=== PATIENT | male | born 1935 | race Caucasian/White ===

== ENCOUNTER 2017-10-10 16:20 | Inpatient (IN) | payer MEDICARE ==
[~2017-10-10] VITALS: Ht 200.7 cm; Wt 104.9 kg
[~2017-10-10 16:20] MED LIST: ASPIRIN EC81 MG PO; ATIVAN0.5 MG PO; AUGMENTIN 875-1 EACH PO; BACTROBAN15 GM TOP; BENADRYL25 M1 PO; BP MED PO; CENTRUM SILVER1 EAC3 PO; CHLORHEXIDINE118 M1 TOP; CLONAZEPAM1 MG PO; COREG12.5 MG PO; FLAGYL250 MG PO; HYDROCODON-ACE1 EA11 PO; LACTULOSE20 GM/30 M PO; LASIX40 MG PO; LEVOTHYROXINE PO; LEVOTHYROXINE50 MCG PO; LIPITOR20 MG PO; LORAZEPAM0.5 MG PO; MIRALAX17 GM PO; NEURONTIN300 MG PO; NORCO 10MG-325MG1 EA PO; PANTOPRAZOLE SO40 MG PO; PLAVIX75 MG PO; PROMETHAZINE HC25 M1 PO; RAMIPRIL10 MG PO; RAMIPRIL5 MG PO; SALINE NASAL SP45 ML; SENNA-S TABLET1 EA PO; SYNTHROID150 MCG PO; ULTRAM50 MG PO; ZOFRAN4 MG PO
--- OUTSIDE RECORDS SUMMARY | 2017-10-10 16:25 | XMS REPORT ---
Author Author [facility] Address Unknown Phone Unavailable Care Team Providers Care Readiness Paraprofessional Name Role Phone EVELIOVERNKATIUSKASTEVEN MarteANA Unavailable Unavailable CLEMENT OCONNOR Unavailable Unavailable JIM GUPTA Unavailable Unavailable Problems This patient has no known problems. Allergies, Adverse Reactions, Alerts This patient has no known allergies or adverse reactions. Medications This patient has no known medications. Results Test Description Test Time Test Comments Text Results Atomic Results Result Comments TISSUE EXAM 2017-07-13 15:05:00 Surgical Pathology Report Case: [id number] Authorizing Provider: Errol Gonzalez MD Collected: 07/08/2017 1143 Ordering Location: [address] Received: 2016 0857 Service Pathologist: Jimbo Cabrera MD Specimens: A) - Soft Tissue, Other, right lateral wall B) - Soft Tissue, Other, posterior wall A. URINARY BLADDER, RIGHT LATERAL WALL, TRANSURETHRAL RESECTION: - PAPILLARY UROTHELIAL CARCINOMA, HIGH GRADE (WHO GRADE 3), INVASIVE INTO MUSCULARIS PROPRIA - NEGATIVE FOR LYMPH/VASCULAR INVASIONB. URINARY BLADDER, POTERIOR WALL, TRANSURETHRAL RESECTION: - FREE- FLOATING FRAGMENTS OF UROTHELIAL CARCINOMA, HIGH GRADE, IN BLOOD AND FIBRIN Signing Pathologist Direct Phone Line: [phone] signed by Jimbo Cabrera MD on 07/13/2017 at 3:05 [id number] x 2.Bladder tumorA. Right lateral wall. B. Posterior wallSpecimen A: Received in formalin labeled "soft tissue, other", description "right lateral wall" is a 2.5 x 2.2 x 0.3 cm aggregate of pink-witt to espinoza-white, rubbery, cauterized, soft tissue. The specimen is entirely submitted in cassettes A1-A2.Specimen B: Received in formalin labeled "soft tissue, other", description "posterior wall" are two fragments measuring 0.5 cm and 0.8 cm in greatest dimension. The specimen is entirely submitted in B1. DB/ew Performed BASIC METABOLIC PANEL 2017-07-10 06:55:00 SODIUM (BEAKER) (test gahc=486) 136 meq/L 136-145 POTASSIUM (BEAKER) (test kzwl=136) 4.1 meq/L 3.5-5.1 CHLORIDE (BEAKER) (test yxjr=158) 107 meq/L 98-107 CO2 (BEAKER) (test ttnj=981) 21 meq/L 22-29 BLOOD UREA NITROGEN (BEAKER) (test rygb=536) 26 mg/dL 7-21 CREATININE (BEAKER) (test eyam=225) 1.06 mg/dL 0.57-1.25 GLUCOSE RANDOM (BEAKER) (test ithi=207) 102 mg/dL 70-105 CALCIUM (BEAKER) (test ntfh=064) 8.5 mg/dL 8.4-10.2 EGFR (BEAKER) (test wjho=0815) 67 mL/min/1.73 sq m ESTIMATED GFR IS NOT ACCURATE CREATININE CLEARANCE IN PREDICTING GLOMERULAR FILTRATION RATE. ESTIMATED GFR IS NOT APPLICABLE FOR DIALYSIS PATIENTS. CBC (HEMOGRAM ONLY)2017-07-10 06:14:00* Test Item Value Reference Range Comments WHITE BLOOD CELL COUNT (BEAKER) (test bmjp=553) 12.3 K/ L 3.5-10.5 RED BLOOD CELL COUNT (BEAKER) (test aqne=008) 3.88 M/ L 4.63-6.08 HEMOGLOBIN (BEAKER) (test qjdi=586) 11.8 GM/DL 13.7-17.5 HEMATOCRIT (BEAKER) (test ydvj=358) 38.1 % 40.1-51.0 MEAN CORPUSCULAR VOLUME (BEAKER) (test okkj=168) 98.2 fL 79.0-92.2 MEAN CORPUSCULAR HEMOGLOBIN (BEAKER) (test xznm=834) 30.4 pg 25.7-32.2 MEAN CORPUSCULAR HEMOGLOBIN CONC (BEAKER) (test mzob=151) 31.0 GM/DL 32.3- 36.5 RED CELL DISTRIBUTION WIDTH (BEAKER) (test eoyh=950) 14.8 % 11.6-14.4 PLATELET COUNT (BEAKER) (test hxry=856) 273 K/CU MM 150-450 MEAN PLATELET VOLUME (BEAKER) (test qzhs=389) 10.5 fL 9.4-12.4 NUCLEATED RED BLOOD CELLS (BEAKER) (test soxs=934) 0 /100 WBC 0-0 BASIC METABOLIC [id number] 06:04:00* Test Item Value Reference Range Comments SODIUM (BEAKER) (test eexk=546) 137 meq/L 136-145 POTASSIUM (BEAKER) (test kzby=346) 4.8 meq/L 3.5-5.1 CHLORIDE (BEAKER) (test toue=147) 102 meq/L 98-107 CO2 (BEAKER) (test bnwu=209) 24 meq/L 22-29 BLOOD UREA NITROGEN (BEAKER) (test scyr=224) 25 mg/dL 7-21 CREATININE (BEAKER) (test unis=769) 1.26 mg/dL 0.57-1.25 GLUCOSE RANDOM (BEAKER) (test eclq=540) 127 mg/dL 70-105 CALCIUM (BEAKER) (test nrma=191) 9.2 mg/dL 8.4-10.2 EGFR (BEAKER) (test wzay=8013) 55 mL/min/1.73 sq m ESTIMATED GFR IS NOT ACCURATE CREATININE CLEARANCE IN PREDICTING GLOMERULAR FILTRATION RATE. ESTIMATED GFR IS NOT APPLICABLE FOR DIALYSIS PATIENTS. CBC (HEMOGRAM ONLY)2017-07-09 05:21:00* Test Item Value Reference Range Comments WHITE BLOOD CELL COUNT (BEAKER) (test lioo=201) 19.7 K/ L 3.5-10.5 RED BLOOD CELL COUNT (BEAKER) (test mhik=692) 4.38 M/ L 4.63-6.08 HEMOGLOBIN (BEAKER) (test abqn=638) 13.5 GM/DL 13.7-17.5 HEMATOCRIT (BEAKER) (test ivfl=075) 42.9 % 40.1-51.0 MEAN CORPUSCULAR VOLUME (BEAKER) (test obzd=337) 97.9 fL 79.0-92.2 MEAN CORPUSCULAR HEMOGLOBIN (BEAKER) (test adcf=899) 30.8 pg 25.7-32.2 MEAN CORPUSCULAR HEMOGLOBIN CONC (BEAKER) (test psko=427) 31.5 GM/DL 32.3- 36.5 RED CELL DISTRIBUTION WIDTH (BEAKER) (test hhuo=527) 14.6 % 11.6-14.4 PLATELET COUNT (BEAKER) (test hcrr=600) 329 K/CU MM 150-450 MEAN PLATELET VOLUME (BEAKER) (test swjr=904) 10.8 fL 9.4-12.4 NUCLEATED RED BLOOD CELLS (BEAKER) (test tywa=848) 0 /100 WBC 0-0 BASIC METABOLIC [id number] 07:17:00* Test Item Value Reference Range Comments SODIUM (BEAKER) (test lwyq=143) 138 meq/L 136-145 POTASSIUM (BEAKER) (test unhy=791) 3.9 meq/L 3.5-5.1 CHLORIDE (BEAKER) (test zedl=614) 102 meq/L 98-107 CO2 (BEAKER) (test zbll=555) 25 meq/L 22-29 BLOOD UREA NITROGEN (BEAKER) (test okmj=088) 21 mg/dL 7-21 CREATININE (BEAKER) (test qior=092) 1.15 mg/dL 0.57-1.25 GLUCOSE RANDOM (BEAKER) (test vopc=310) 110 mg/dL 70-105 CALCIUM (BEAKER) (test dvkz=353) 8.9 mg/dL 8.4-10.2 EGFR (BEAKER) (test gtim=5988) 61 mL/min/1.73 sq m ESTIMATED GFR IS NOT ACCURATE CREATININE CLEARANCE IN PREDICTING GLOMERULAR FILTRATION RATE. ESTIMATED GFR IS NOT APPLICABLE FOR DIALYSIS PATIENTS. CBC W/PLT COUNT & AUTO [id number] 06:15:00* Test Item Value Reference Range Comments WHITE BLOOD CELL COUNT (BEAKER) (test ydha=427) 12.8 K/ L 3.5-10.5 RED BLOOD CELL COUNT (BEAKER) (test ecyw=167) 4.23 M/ L 4.63-6.08 HEMOGLOBIN (BEAKER) (test imfl=988) 13.0 GM/DL 13.7-17.5 HEMATOCRIT (BEAKER) (test tvza=295) 41.8 % 40.1-51.0 MEAN CORPUSCULAR VOLUME (BEAKER) (test lbij=461) 98.8 fL 79.0-92.2 MEAN CORPUSCULAR HEMOGLOBIN (BEAKER) (test hchd=991) 30.7 pg 25.7-32.2 MEAN CORPUSCULAR HEMOGLOBIN CONC (BEAKER) (test ycfu=242) 31.1 GM/DL 32.3- 36.5 RED CELL DISTRIBUTION WIDTH (BEAKER) (test suxw=228) 14.7 % 11.6-14.4 PLATELET COUNT (BEAKER) (test ozsc=645) 273 K/CU MM 150-450 MEAN PLATELET VOLUME (BEAKER) (test olnk=532) 10.5 fL 9.4-12.4 NUCLEATED RED BLOOD CELLS (BEAKER) (test hfal=851) 0 /100 WBC 0-0 NEUTROPHILS RELATIVE PERCENT (BEAKER) (test yade=108) 65 % LYMPHOCYTES RELATIVE PERCENT (BEAKER) (test fiyk=415) 15 % MONOCYTES RELATIVE PERCENT (BEAKER) (test zkxh=328) 15 % EOSINOPHILS RELATIVE PERCENT (BEAKER) (test dqmk=731) 5 % BASOPHILS RELATIVE PERCENT (BEAKER) (test slbj=315) 0 % NEUTROPHILS ABSOLUTE COUNT (BEAKER) (test gxfc=357) 8.30 K/ L 1.78-5.38 LYMPHOCYTES ABSOLUTE COUNT (BEAKER) (test cpum=851) 1.92 K/ L 1.32-3.57 MONOCYTES ABSOLUTE COUNT (BEAKER) (test xlsr=275) 1.90 K/ L 0.30-0.82 EOSINOPHILS ABSOLUTE COUNT (BEAKER) (test xoyf=894) 0.58 K/ L 0.04-0.54 BASOPHILS ABSOLUTE COUNT (BEAKER) (test dxqb=242) 0.05 K/ L 0.01-0.08 IMMATURE GRANULOCYTES-RELATIVE PERCENT (BEAKER) (test tfai=1492) 0 % 0-1 CT ABDOMEN/PELVIS [place] [address] Patient Name: RENE WILLS MR #: [id number] : 1935 Age/Sex: 81/M Req #: [id number] Adm Physician: CLEMENT OCONNOR MD Ordered by: LOUISE GALEANO MD Report #: [id number] Location: MED/SURG2 Room/Bed: [facility] _ Procedure: [id number] CT/CT ABDOMEN/PELVIS WO Exam Date: 07/02/17 Exam Time: 0600 REPORT STATUS: Signed EXAM: CT Abdomen and Pelvis WITHOUT contrast INDICATION: Abdominal pain COMPARISON: CT abdomen and pelvis 05/19/2017 TECHNIQUE: Abdomen and pelvis were scanned utilizing a multidetector helical scanner from the lung base to the pubic symphysis. Coronal and sagittal reformations were obtained. The lack of intravenous contrast limits the evaluation of the solid organs, vasculature, and possible lymphadenopathy. Protocol: General survey without contrast IV CONTRAST: No intravenous contrast was administered as per physician request. ORAL CONTRAST: None. COMPLICATIONS: None. RADIATION DOSE: Total Exam DLP: 722.7 mGy*cm. CTDIvol has been reviewed. It is below the limits set by the Radiation Protocol Committee (RPC). FINDINGS: LINES: None. Lower thorax: No parenchymal abnormality. No pneumothorax. No pleural effusion. Liver: No focal mass. No hepatomegaly. Normal parenchyma. Gallbladder: No gallstones. No gallbladder distention. Biliary tree: No intrahepatic duct dilation. No extrahepatic duct dilation. Spleen: No splenomegaly. No focal mass. Pancreas: No focal mass. Normal pancreatic duct. No peripancreatic inflammatory changes. Partial fatty replacement of the pancreas. Kidneys: 3.4 cm irregularity is present in the interpolar region of the right kidney, series 3 image 63, with an exophytic component and extension into the renal pelvis. 1.9 cm exophytic hypodensity in the inferior pole of the left kidney, series 3 image 59. 4.4 mm calculus is present in the interpolar region of the right kidney, series 3 image 72. No obstructing calculi. No hydronephrosis. No perinephric soft tissue inflammatory changes. Adrenal glands: No adrenal nodules.. Bladder: 2.2 cm asymmetric hyperdensity is present in the right lateral aspect of the urinary bladder, series 3 image 164. Minimal inflammatory changes are present around the urinary bladder. Pelvic organs : Normal. GI: No bowel wall thickening. No air-fluid levels. The stomach and small bowel are normal. Multiple diverticuli are present in the descending and sigmoid colon, without adjacent soft tissue inflammatory changes. Normal appendix. A moderate amount of retained feces limits intraluminal evaluation of the colon. Peritoneum/retroperitoneum: No pneumoperitoneum. No ascites. No drainable fluid collection. Lymph nodes : No lymphadenopathy. . Vessels: No focal abnormality. Atherosclerotic calcifications. Limited evaluation. Bones: No focal abnormality. Postoperative changes of the proximal right femur. Soft tissues: No focal abnormality. IMPRESSION: Asymmetric thickening of the urinary bladder may represent a malignancy. A cystoscopy may provide additional information for further characterization. Nonobstructing right nephrolithiasis. Indeterminate bilateral renal hypodensities, likely represent cysts. A renal ultrasound may provide additional information for further characterization. Signed by: Dr. Jonas Gaitan M.D. on 04/2017 9:19 AM Dictated By: JONAS GAITAN MD 8 Transcribed By: ABHINAV on 07/02/17918 COPY TO: LOUISE GALEANO MD CT ABDOMEN/PELVIS W[place] [address] Patient Name: RENE WILLS MR #: [id number] : 1935 Age/Sex: 81/M Req #: [id number] Adm Physician: CLEMENT OCONNOR MD Ordered by: JONH CHAVEZ MD Report #: [id number] Location: MED/SURG2 Room/ Bed: [facility] Procedure: [id number] CT/CT ABDOMEN/PELVIS WOW Exam Date: 07/02/17 Exam Time: 1215 REPORT STATUS: Signed EXAM: CT Abdomen and Pelvis WITH contrast INDICATION: Bladder lesion. COMPARISON: CT abdomen and pelvis 05/19/2017 and 07/02/2017. TECHNIQUE: Abdomen and pelvis were scanned utilizing a multidetector helical scanner from the lung base to the pubic symphysis before and after administration of contrast. Images were obtained in the precontrast, arterial, venous, and delayed phases. Coronal and sagittal reformations were obtained. Protocol: General survey IV CONTRAST: 100 mL of Isovue 370 ORAL CONTRAST: None COMPLICATIONS: None RADIATION DOSE: Total Exam DLP: 2745 mGy*cm. CTDIvol has been reviewed. It is below the limits set by the Radiation Protocol Committee (RPC). FINDINGS: LINES: None. Lower thorax: No parenchymal abnormality. No pneumothorax. No pleural effusion. Partially visualized cardiac lead. Liver: No focal mass. No hepatomegaly. Normal parenchyma. The hepatic and portal veins are patent. Gallbladder: No gallstones. No gallbladder distention. Biliary tree: No intrahepatic duct dilation. No extrahepatic duct dilation. Spleen: No splenomegaly. 4.4 cm hypodensity is present in the lateral aspect of the spleen, series 4 image 97. Pancreas: Normal parenchymal enhancement. No focal mass. Normal pancreatic duct. No peripancreatic inflammatory changes. Kidneys: No obstructing calculi. No hydronephrosis. No solid enhancing mass. Bilateral renal simple cysts. No perinephric soft tissue inflammatory changes. Adrenal glands: No adrenal nodules.. Bladder: 3.0 x 1.8 cm enhancing nodule in the right lateral aspect of the urinary bladder, series 4 image 163. Pelvic organs: Normal. GI: No bowel wall thickening. No air-fluid levels. The stomach and small bowel are normal. Diverticulosis of the descending and sigmoid colon. Normal appendix. A moderate amount of retained feces limits intraluminal evaluation of the colon. Peritoneum/retroperitoneum: No pneumoperitoneum. No ascites. No drainable fluid collection. Lymph nodes : No lymphadenopathy. Multiple subcentimeter noncalcified nonnecrotic lymph nodes are present in the mesentery with adjacent nonspecific soft tissue inflammatory changes. The changes are present in the distribution of the superior mesenteric artery. Vessels: The abdominal aorta and iliac vessels are patent. The celiac, superior mesenteric, and inferior mesenteric arteries are patent. Single bilateral renal arteries are patent. Atherosclerotic calcifications. Bones: No focal abnormality. Postoperative changes of the proximal right femur. Degenerative changes of the lumbar spine. Soft tissues: No focal abnormality. IMPRESSION: Hypodensity in the spleen is concerning for malignancy. Enhancing lesion in the lateral aspect of the urinary bladder is concerning for malignancy. Signed by: Dr. Jonas Gaitan M.D. on 07/02/2017 2:18 PM Dictated By : JONAS GAITAN MD 17 Transcribed By: ABHINAV on 07/02/171417 COPY TO: JONH CHAVEZ MD CT ABDOMEN/PELVIS [place] [address] Patient Name: RENE WILLS MR #: [id number] : 1935 Age/Sex: 81/M Req #: [id number] Adm Physician: Ordered by: JIM GUPTA MD Report #: [id number] Location: ER Room/Bed: Procedure: [id number] CT/CT ABDOMEN/PELVIS WO Exam Date: 05/19/17 Exam Time: 2123 REPORT STATUS: Signed EXAM: CT ABDOMEN AND PELVIS without IV CONTRAST DATE: 05/19/2017 9:14 PM Time stamp on Exam: 2126 hours INDICATION: Hematuria, right flank pain COMPARISON: None TECHNIQUE: The abdomen and pelvis were scanned using a multidetector helical scanner. Coronal and sagittal reformations were obtained. Renal stone protocol performed. IV Contrast: None Oral Contrast: None CTDIvol has been reviewed. It is below the limits set by the Radiation Protocol Committee (RPC) . FINDINGS: LOWER THORAX: No consolidations LIVER: No masses BILIARY: The gallbladder is unremarkable. No ductal dilation. SPLEEN: No masses PANCREAS: No masses ADRENALS: No nodules RIGHT KIDNEY: No nephroureterolithiasis or hydronephrosis. Nonobstructing 2 mm stone inferior pole of the right kidney. LEFT KIDNEY: No nephroureterolithiasis or hydronephrosis. Simple exophytic 2.5 cm cyst in the posterior medial aspect of the left kidney interpolar region. GI TRACT: No distention, wall thickening or evidence of obstruction. Sigmoid colon diverticulosis without CT findings of diverticulitis. Normal appendix. 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 PERITONEUM/RETROPERITONEUM: No free air or fluid. Nonspecific hyperattenuation of the mesenteric root mesentery without lymphadenopathy. LYMPH NODES: No lymphadenopathy REPRODUCTIVE ORGANS: The prostate is mildly enlarged at 4.7 cm in transverse diameter. BLADDER: The bladder is decompressed, however there is a partially visualized proximally 2 cm hyperdense focus. SOFT TISSUES: Unremarkable BONES: No suspicious bone lesions. Right hip surgical changes. IMPRESSION : 1. Irregular hyperdense 2 cm focus in the bladder could represent a blood clot or mass. Direct visualization is recommended. 2. Nonobstructing 2 mm stone in the inferior pole of the right kidney. Signed by: Dr. Román Lindo M.D. on 05/19/2017 9:52 PM Dictated By: ROMÁN LINDO MD 51 Transcribed By: ABHINAV on 05/19/172151 COPY TO: JIM GUPTA MD
--- NOTE | 2017-10-10 18:51 | Diagnostic Imaging Report ---
PROCEDURE: A single AP view of the chest. COMPARISON: Patients [facility], DX, CHEST 2 VIEWS - POWELL, 09/15/2016, 14:34. INDICATIONS: left sided chest pain, short of breath FINDINGS: Lines/tubes: Stable right upper chest Port-A-Cath and left chest 2-lead cardiac device Lungs: The lungs are well inflated and grossly clear. There is no evidence of pneumonia or pulmonary edema. Pleura: There is no pleural effusion or pneumothorax. Heart and mediastinum: Cardiac silhouette is unremarkable. Multiple metallic clips are again noted projecting over the cardiac shadow likely from prior CABG. Pulmonary vasculature is normal. Tortuous aorta. Bones: No acute bony abnormality. Midline sternotomy wires. IMPRESSION: 1. No acute cardiopulmonary abnormalities. Piter Joseph M.D. Dictated by: Pietr Joseph M.D. on 10/10/2017 at 18:52 Electronically approved by: Piter Joseph M.D. on 10/10/2017 at 18:52
[2017-10-10 19:07] LABS: BASOPHILS # (AUTO) 0.1 (0.0-0.1); BASOPHILS % 0.4 % (0.0-1.0); EOSINOPHILS # (AUTO) 0.5 (0.0-0.4); EOSINOPHILS % 3.2 % (0.0-6.0); HEMATOCRIT 40.6 % (38.2-49.6); HEMOGLOBIN 12.9 g/dL (14.0-18.0); LYMPHOCYTES # (AUTO) 2.2 (1.0-3.2); LYMPHOCYTES % 15.3 % (18.0-39.1); MEAN CORPUSCULAR HEMOGLOBIN 29.1 pg (28-32); MEAN CORPUSCULAR HGB CONC 31.8 g/dL (31-35); MEAN CORPUSCULAR VOLUME 91.6 fL (81-99); MONOCYTES # (AUTO) 1.6 (0.2-0.8); MONOCYTES % 11.1 % (4.4-11.3); NEUTROPHILS # (AUTO) 9.9 (2.1-6.9); NEUTROPHILS % 69.6 % (38.7-80.0); PLATELET COUNT 351 x10e3/uL (140-360); RED BLOOD COUNT 4.43 x10e6/uL (4.3-5.7); RED CELL DISTRIBUTION WIDTH 14.5 % (11.7-14.4)
[2017-10-10 19:15] LABS: INR 1.07; PROTHROMBIN TIME 13.1 seconds (11.9-14.5)
[2017-10-10 19:16] LABS: PARTIAL THROMBOPLASTIN TIME 38.8 seconds (23.8-35.5)
[2017-10-10 19:25] LABS: ALBUMIN 3.3 g/dL (3.5-5.0); ALBUMIN/GLOBULIN RATIO 0.8 (0.8-2.0); ANION GAP 13.1 mmol/L (8-16); CALCIUM 9.7 mg/dL (8.4-10.2); CREATININE, SERUM 1.44 mg/dL (0.72-1.25); POTASSIUM 4.1 mmol/L (3.5-5.1)
[2017-10-10 19:31] LABS: CREATINE KINASE MB 0.9 ng/mL (0-5.0)
[2017-10-10 19:48] LABS: EOSINOPHILS % (MANUAL) 2 % (0-7); LYMPHOCYTES % (MANUAL) 13 % (19-48); MONOCYTES % (MANUAL) 11 % (3.4-9.0); NEUTROPHILS % (MANUAL) 71 % (40-74); PLATELET ESTIMATE ADEQUATE; PLATELET MORPHOLOGY COMMENT NORMAL; RBC MORPHOLOGY COMMENT NORMAL
[2017-10-10 21:08] LABS: BILIRUBIN,URINE NEGATIVE (NEGATIVE); CLARITY,URINE HAZY (CLEAR); COLOR,URINE RED (YELLOW); KETONES,URINE NEGATIVE (NEGATIVE); LEUKOCYTE ESTERASE ,URINE NEGATIVE (NEGATIVE); NITRITE,URINE NEGATIVE (NEGATIVE); URINE UROBILINOGEN 0.2 mg/dL (0.2 - 1)
[2017-10-10 21:13] LABS: PROTEIN,URINE DIPSTICK 2+ (NEGATIVE)
[2017-10-10 21:26] LABS: BACTERIA,URINE MODERATE /HPF; RBC,URINE >50 /HPF (0-5)
[2017-10-10] MEDS ORDERED: ASPIRIN 81 MG CHEW TAB PO ONE (21:45)
[2017-10-10] MEDS ORDERED: SODIUM CHLORIDE FLUSH 10 ML SYR INJ PRN (21:45)
[2017-10-10] MEDS: NITROGLYCERIN 2% OINT 1 GM PKT TOP SCH (23:20)
[2017-10-10] MEDS: MORPHINE SULFATE 2 MG/ML SYR IV PRN (23:20)
[2017-10-10] MEDS: ONDANSETRON HCL INJ 2 MG/ML VIAL IV PRN (23:20)
[2017-10-11] VITALS (7 sets, daily range): BP systolic 106–151; BP diastolic 56–86
[2017-10-11 05:16] LABS: CREATINE KINASE MB 0.8 ng/mL (0-5.0)
[2017-10-11] MEDS: NITROGLYCERIN 2% OINT 1 GM PKT TOP SCH ×3 (05:53→17:33)
[2017-10-11 06:28] LABS: BASOPHILS # (AUTO) 0.1 (0.0-0.1); BASOPHILS % 0.5 % (0.0-1.0); EOSINOPHILS # (AUTO) 0.4 (0.0-0.4); HEMATOCRIT 34.6 % (38.2-49.6); LYMPHOCYTES # (AUTO) 2.3 (1.0-3.2); LYMPHOCYTES % 17.6 % (18.0-39.1); MEAN CORPUSCULAR HEMOGLOBIN 29.2 pg (28-32); MEAN CORPUSCULAR HGB CONC 31.8 g/dL (31-35); MEAN CORPUSCULAR VOLUME 91.8 fL (81-99); MONOCYTES # (AUTO) 1.7 (0.2-0.8); MONOCYTES % 12.7 % (4.4-11.3); NEUTROPHILS # (AUTO) 8.7 (2.1-6.9); NEUTROPHILS % 65.8 % (38.7-80.0); PLATELET COUNT 285 x10e3/uL (140-360); RED BLOOD COUNT 3.77 x10e6/uL (4.3-5.7); RED CELL DISTRIBUTION WIDTH 14.5 % (11.7-14.4)
[2017-10-11 06:55] LABS: CREATINE KINASE MB 0.9 ng/mL (0-5.0)
[2017-10-11 07:31] LABS: ALBUMIN 2.8 g/dL (3.5-5.0); ALBUMIN/GLOBULIN RATIO 0.8 (0.8-2.0); ANION GAP 12.1 mmol/L (8-16); CREATININE, SERUM 1.35 mg/dL (0.72-1.25); POTASSIUM 4.1 mmol/L (3.5-5.1)
[2017-10-11 07:48] LABS: EOSINOPHILS % (MANUAL) 3 % (0-7); LYMPHOCYTES % (MANUAL) 14 % (19-48); MONOCYTES % (MANUAL) 9 % (3.4-9.0); NEUTROPHILS % (MANUAL) 72 % (40-74)
[2017-10-11 07:49] LABS: ANISOCYTOSIS SLIGHT; HYPOCHROMASIA SLIGHT; PLATELET ESTIMATE ADEQUATE; PLATELET MORPHOLOGY COMMENT NORMAL; RBC MORPHOLOGY COMMENT NORMAL
[2017-10-11] MEDS ORDERED: ASPIRIN 81 MG ENTERIC COATED PO SCH (09:00)
[2017-10-11] MEDS: MORPHINE SULFATE 2 MG/ML SYR IV PRN (09:40)
--- NOTE | 2017-10-11 11:10 | Consultation ---
DATE OF CONSULTATION: October 11, 2017 CARDIOLOGY CONSULTATION REASON FOR CONSULTATION: Chest pain. HISTORY OF PRESENT ILLNESS: This is a 81-year-old man with a history of coronary artery disease, status post CABG and stents, chronic systolic heart failure, status post AICD, hypertension, hypothyroidism, and high-grade papillary urothelial carcinoma, who presents with complaints of chest pain and abdominal pain. The patient reports he had recent urologic procedure 2 weeks ago. He was receiving physical therapy at home when his heart rate was noted to be low. He then developed chest discomfort, which he described as sharp and lasting seconds at a time that was better when he moved his chest. There was no radiation, shortness of breath, nausea, or diaphoresis. His main complaint, however, is of pelvic discomfort. REVIEW OF SYSTEMS: Negative except as per HPI. PAST MEDICAL HISTORY: Coronary artery disease, status post CABG and stents, hypertension, chronic systolic heart failure, status post AICD, urothelial carcinoma. PAST SURGICAL HISTORY: CABG, right hip surgical repair, transurethral resection of bladder cancer. ALLERGIES: PLEASE SEE MAR. MEDICATIONS: Please see medication list. SOCIAL HISTORY: He has a remote history of tobacco use. No alcohol or illicit drugs. FAMILY HISTORY: Noncontributory. PHYSICAL EXAMINATION VITALS: Temperature 98.6 degrees, pulse 59, respiratory rate 16, blood pressure 116/57, oxygen saturation 94%. GENERAL: A well-developed, well-nourished man in no acute distress. HEENT: Normocephalic and atraumatic. Pupils equal. No scleral icterus. NECK: Supple. No thyromegaly or cervical lymphadenopathy. No carotid bruits. LUNGS: Clear to auscultation bilaterally. No wheezes or crackles. CARDIOVASCULAR: Normal rate. Regular rhythm. No murmur. Normal S1 and S2. ABDOMEN: Soft and nontender. EXTREMITIES: Trace edema on the right. No edema on the left. NEURO: Nonfocal exam. EKG is sinus arrhythmia, poor R-wave progression, low QRS voltage in precordial leads. Chest x-ray with no acute cardiopulmonary abnormalities. IMPRESSION 1. Chest pain. 2. Right lower extremity edema. 3. Coronary artery disease: Status post coronary artery bypass graft and stents with recent nuclear stress test at the office. 4. Chronic systolic heart failure: Status post automatic implanted cardioverter defibrillator. 5. Hypertension. 6. Hyperlipidemia. 7. Urothelial carcinoma. RECOMMENDATIONS: The patient ruled out for myocardial infarction with serial cardiac biomarkers. CTA of the chest to evaluate for PE given recent surgery. Will obtain bilateral lower extremity venous Dopplers as well. Continue current cardiac medications otherwise, including his home carvedilol and Lasix. Will have his AICD interrogated. Thank you for this consult. We will continue to follow. Job#: [id number] MARY
[2017-10-11] MEDS ORDERED: SODIUM CHLORIDE 0.9% 1000ML 1,000 ML IV SCH (11:30)
--- NOTE | 2017-10-11 13:29 | Diagnostic Imaging Report ---
PROCEDURE: CT scan of the chest WITH intravenous contrast, using pulmonary angiogram protocol. TECHNIQUE: The chest was scanned utilizing a multidetector helical scanner from the lung apex through the level of the adrenal glands after the IV administration of 78 cc of Isovue 370. Coronal and sagittal multiplanar reformations were obtained. Total DLP: 543.32 mGy-cm COMPARISON: CT abdomen pelvis 07/02/2017 INDICATIONS: Shortness of breath FINDINGS: Lines/tubes: Postoperative changes in median sternotomy wires and CABG. Lungs and Airways: Good opacification of the main pulmonary artery. No pulmonary emboli. 4.3 mm nodule in the right upper lobe (series 3 image 48). The lungs and airways are normal with no focal abnormality demonstrated. Atelectasis secondary to expiratory views. Pleura: The pleural spaces are clear. Heart and mediastinum: The thyroid gland is normal. No significant mediastinal, hilar or axillary lymphadenopathy is seen. The heart and pericardium are within normal limits. Severe coronary artery calcifications. Main pulmonary artery measures 2.7 cm. Ascending aorta measures 4.2 cm. Soft tissues: Normal. Abdomen: Limited contrast-enhanced views of the upper abdomen show no abnormality within the visualized liver, spleen, pancreas, or kidneys. The adrenal glands are normal. New indeterminate 2.8 cm mass in segment 5 the liver (series 2 image 125). Small sliding hiatal hernia with extension of intraperitoneal fat into the thorax. Bones: The visualized bony thorax is within normal limits. IMPRESSION: 1. No pulmonary emboli. 2. 4.3 mm right upper lobe nodule. Lungs are otherwise unremarkable. 3. New 2.8 cm mass in the right hepatic lobe. Recommend CT or MR abdomen without and with contrast liver mass protocol for further evaluation. Dictated by: Moises Gonzales M.D. on 10/11/2017 at 13:29 Electronically approved by: Moises Gonzales M.D. on 10/11/2017 at 13:29
[2017-10-11] MEDS ORDERED: SODIUM CHLORIDE 0.9% 50ML 100 ML ONE (15:08)
[2017-10-11] MEDS ORDERED: IOPAMIDOL 370 MG/ML 200 ML INFUS..BTL INJ ONE (15:08)
[2017-10-11] MEDS: DEXTROSE 5%/0.45% SOD CHL 1,000 ML IV SCH (17:53)
[2017-10-11] MEDS: MELATONIN 5 MG TABLET PO SCH (21:25)
[2017-10-12] VITALS (8 sets, daily range): BP systolic 128–154; BP diastolic 62–74
[2017-10-12] MEDS: NITROGLYCERIN 2% OINT 1 GM PKT TOP SCH ×4 (00:43→17:04)
[2017-10-12] MEDS: ONDANSETRON HCL INJ 2 MG/ML VIAL IV PRN ×2 (07:10→12:15)
[2017-10-12] MEDS ORDERED: SODIUM CHLORIDE 0.9% 1000ML 1,000 ML IV SCH (11:30)
[2017-10-12] MEDS: DEXTROSE 5%/0.45% SOD CHL 1,000 ML IV SCH (14:42)
[2017-10-12] MEDS ORDERED: POLYETHYLENE GLYCOL 3350 17 GM PACK PO PRN (15:00)
--- NOTE | 2017-10-12 15:16 | Progress Note ---
DATE: October 12, 2017 CARDIOLOGY PROGRESS NOTE SUBJECTIVE: The patient denies chest pain or shortness of breath. He was seen walking the halls with PT. OBJECTIVE VITAL SIGNS: Temperature 97.3 degrees, pulse 60, respiratory rate 17, blood pressure 164/74, oxygen saturation 94% on room air. GENERAL: Awake, alert, in no acute distress. Elderly man. LUNGS: Clear to auscultation bilaterally. No wheezes or crackles. CARDIOVASCULAR: Normal rate, regular rhythm. No murmur. Normal S1 and S2. ABDOMEN: Soft, nontender. EXTREMITIES: Trace edema. CARDIAC MEDICATIONS: None. LABS: None today. TELEMETRY: Normal sinus rhythm with PACs and PVCs. IMPRESSION 1. Chest pain. 2. Right lower extremity edema. 3. Coronary artery disease status post coronary artery bypass graft and stents with recent nuclear stress test at the office. 4. Chronic systolic heart failure status post automatic implantable cardioverter-defibrillator. 5. Hypertension. 6. Hyperlipidemia. 7. Urothelial carcinoma. RECOMMENDATIONS: Patient ruled out for myocardial infarction with serial cardiac biomarkers. CTA of the chest was without evidence of PE. Bilateral lower extremity venous Dopplers were without evidence of DVT. Continue current cardiac medications. The patient's AICD interrogation demonstrated normal function with episodes of supraventricular tachycardia, the longest of which lasted 10 seconds. No further cardiac evaluation is indicated at this time. Thank you for this consult. We will continue to follow. Job#: [id number] FREDRICK
[2017-10-12] MEDS ORDERED: SOD PHOSPHATE/SOD BIPHOSPHATE ENEMA 132 ML BTL PR STA (17:32)
--- NOTE | 2017-10-12 17:50 | Diagnostic Imaging Report ---
PROCEDURE:HIP RIGHT 2-3 VW (+/- PELVIS) COMPARISON:None. INDICATIONS:RIGHT HIP PAIN FINDINGS: Mildly decreased mineralization. 3. Orthopedic screws are noted traversing the right proximal femur. Orthopedic hardware is intact. Mild degenerative changes in the right hip joint. No lytic or blastic lesions. No acute displaced fracture or dislocation. Pelvic phleboliths. Nonobstructive bowel gas pattern. CONCLUSION: No acute abnormalities. Mild degenerative changes in the right hip joint. Intact hardware in the right proximal femur. Piter Joseph M.D. Dictated by: Piter Joseph M.D. on 10/12/2017 at 17:50 Electronically approved by: Piter Joseph M.D. on 10/12/2017 at 17:50
[2017-10-12] MEDS: BISACODYL 5 MG TAB EC PO PRN (17:56)
[2017-10-12] MEDS: MELATONIN 5 MG TABLET PO SCH (21:30)
[2017-10-12] MEDS: CEFTRIAXONE SOD 1 GM VIAL IV SCH (22:00)
[2017-10-13] VITALS (7 sets, daily range): BP systolic 138–169; BP diastolic 65–79
[2017-10-13] MEDS: NITROGLYCERIN 2% OINT 1 GM PKT TOP SCH ×4 (00:30→17:23)
[2017-10-13 07:25] LABS: BASOPHILS # (AUTO) 0.1 (0.0-0.1); BASOPHILS % 0.5 % (0.0-1.0); EOSINOPHILS # (AUTO) 0.4 (0.0-0.4); EOSINOPHILS % 3.3 % (0.0-6.0); HEMOGLOBIN 11.4 g/dL (14.0-18.0); LYMPHOCYTES # (AUTO) 2.2 (1.0-3.2); LYMPHOCYTES % 17.5 % (18.0-39.1); MEAN CORPUSCULAR HEMOGLOBIN 28.9 pg (28-32); MEAN CORPUSCULAR HGB CONC 30.8 g/dL (31-35); MEAN CORPUSCULAR VOLUME 93.9 fL (81-99); MONOCYTES # (AUTO) 1.6 (0.2-0.8); MONOCYTES % 12.5 % (4.4-11.3); NEUTROPHILS # (AUTO) 8.4 (2.1-6.9); NEUTROPHILS % 65.9 % (38.7-80.0); PLATELET COUNT 310 x10e3/uL (140-360); RED BLOOD COUNT 3.94 x10e6/uL (4.3-5.7); RED CELL DISTRIBUTION WIDTH 14.6 % (11.7-14.4)
[2017-10-13 07:48] LABS: CALCIUM 9.4 mg/dL (8.4-10.2); CREATININE, SERUM 1.18 mg/dL (0.72-1.25)
[2017-10-13] MEDS ORDERED: LABETALOL HCL 5 MG/ML 20ML VIAL IV PRN (09:45)
[2017-10-13] MEDS ORDERED: LABETALOL HCL 5 MG/ML 20ML VIAL IV ONE (10:05)
[2017-10-13] MEDS ORDERED: BELLADONNA/OPIUM 60 MG SUPP PR ONE (11:10)
[2017-10-13] MEDS ORDERED: IOPAMIDOL 610MG/1ML 300 MG/ML VIAL IV ONE (11:10)
[2017-10-13] MEDS ORDERED: FENTANYL CITRATE/PF 100MCG/2 ML INJ ONE ×2 (13:10→15:52)
[2017-10-13] MEDS ORDERED: SEVOFLURANE INHAL SOLN 250 ML PEN BTL ONE (13:42)
[2017-10-13] MEDS ORDERED: ONDANSETRON HCL INJ 2 MG/ML VIAL ONE (13:42)
[2017-10-13] MEDS ORDERED: LIDOCAINE HCL 2% LOCAL INJ 5 ML SDV VIAL INJ ONE (13:42)
[2017-10-13] MEDS ORDERED: DEXAMETHASONE SOD PHOS INJ 4 MG/ML VIAL ONE (13:42)
[2017-10-13] MEDS ORDERED: PROPOFOL IV EMULSION 10 MG/ML 20 ML VIAL ONE (13:42)
[2017-10-13] MEDS ORDERED: MIDAZOLAM HCL 2 MG/2 ML VIAL ONE ×2 (13:45→15:52)
[2017-10-13] MEDS ORDERED: MORPHINE SULFATE 2 MG/ML SYR ONE (13:55)
--- NOTE | 2017-10-13 13:59 | Progress Note ---
DATE: October 13, 2017 CARDIOLOGY PROGRESS NOTE SUBJECTIVE: The patient is seen after cystoscopy with retrograde pyelogram. He is combative after anesthesia. No history could be obtained. Family indicates this is common after he receives anesthesia. OBJECTIVE VITALS: Temperature 97.5 degrees, pulse 71, respiratory rate 20, blood pressure 166/71, and oxygen saturation 95% on room air. GENERAL: Awake and in no acute distress. LUNGS: Clear to auscultation bilaterally. No wheezes or crackles. CARDIOVASCULAR: Normal rate. Regular rhythm. No murmurs. Normal S1 and S2. ABDOMEN: Soft and nontender. EXTREMITIES: No edema. CARDIAC MEDICATIONS: None. LABS: WBC 12.68, hemoglobin 11.4, hematocrit 37, and platelets 310,000. Sodium 141, potassium 4, chloride 104, CO2 28, BUN 14, creatinine 1.18. Telemetry is normal sinus rhythm. IMPRESSION 1. Chest pain. 2. Coronary artery disease: Status post coronary artery bypass grafting and stents with recent nuclear stress test at the office. 3. Chronic systolic heart failure: Status post automatic implanted cardioverter defibrillator. 4. Hypertension. 5. Hyperlipidemia. 6. Urothelial carcinoma. 7. Hematuria. RECOMMENDATIONS: The patient ruled out for myocardial infarction by serial cardiac biomarkers. CT of the chest was without evidence of PE. Continue current cardiac medications. AICD interrogation demonstrated normal function. No further cardiac evaluation is indicated at this time. Further evaluation of urothelial carcinoma and hematuria per urology. Thank you for this consult. Will continue to follow. Job#: [id number] MARY
[2017-10-13] MEDS ORDERED: LORAZEPAM INJ 2 MG/ML VIAL IV NR (14:00)
[2017-10-13] MEDS: DEXTROSE 5%/0.45% SOD CHL 1,000 ML IV SCH (17:23)
[2017-10-13] MEDS: CEFTRIAXONE SOD 1 GM VIAL IV SCH (20:33)
[2017-10-13] MEDS: MELATONIN 5 MG TABLET PO SCH (20:33)
[2017-10-14] VITALS (8 sets, daily range): BP systolic 129–164; BP diastolic 69–77
[2017-10-14] MEDS: NITROGLYCERIN 2% OINT 1 GM PKT TOP SCH ×4 (01:06→17:34)
[2017-10-14] MEDS: TRAMADOL HCL 50 MG TAB PO PRN ×2 (01:09→16:10)
[2017-10-14] MEDS: BELLADONNA/OPIUM 60 MG SUPP PR PRN ×2 (03:30→19:50)
[2017-10-14] MEDS: DEXTROSE 5%/0.45% SOD CHL 1,000 ML IV SCH (05:30)
[2017-10-14 08:02] LABS: BASOPHILS # (AUTO) 0.1 (0.0-0.1); BASOPHILS % 0.4 % (0.0-1.0); EOSINOPHILS # (AUTO) 0.3 (0.0-0.4); HEMATOCRIT 34.3 % (38.2-49.6); HEMOGLOBIN 10.8 g/dL (14.0-18.0); LYMPHOCYTES # (AUTO) 1.7 (1.0-3.2); LYMPHOCYTES % 11.8 % (18.0-39.1); MEAN CORPUSCULAR HGB CONC 31.5 g/dL (31-35); MEAN CORPUSCULAR VOLUME 92.2 fL (81-99); MONOCYTES # (AUTO) 2.2 (0.2-0.8); MONOCYTES % 15.5 % (4.4-11.3); NEUTROPHILS # (AUTO) 9.9 (2.1-6.9); NEUTROPHILS % 69.9 % (38.7-80.0); PLATELET COUNT 284 x10e3/uL (140-360); RED BLOOD COUNT 3.72 x10e6/uL (4.3-5.7); RED CELL DISTRIBUTION WIDTH 14.6 % (11.7-14.4)
[2017-10-14 08:20] LABS: ANION GAP 9.7 mmol/L (8-16); BLOOD UREA NITROGEN 12 mg/dL (7-26); BUN/CREATININE RATIO 12 (6-25); CALCIUM 8.5 mg/dL (8.4-10.2); CARBON DIOXIDE 28 mmol/L (22-29); CHLORIDE 103 mmol/L (98-107); CREATININE, SERUM 1.02 mg/dL (0.72-1.25); EST GLOMERULAR FILTRATION RATE > 60 ML/MIN (60-); GLUCOSE 125 mg/dL (74-118); POTASSIUM 3.7 mmol/L (3.5-5.1); SODIUM 137 mmol/L (136-145)
[2017-10-14] MEDS: METOPROLOL SUCCINATE 25 MG TAB XL PO SCH (10:26)
[2017-10-14 10:31] LABS: EOSINOPHILS % (MANUAL) 2 % (0-7); LYMPHOCYTES % (MANUAL) 8 % (19-48); MONOCYTES % (MANUAL) 12 % (3.4-9.0); NEUTROPHILS % (MANUAL) 74 % (40-74)
[2017-10-14 10:32] LABS: PLATELET ESTIMATE ADEQUATE; PLATELET MORPHOLOGY COMMENT NORMAL; RBC MORPHOLOGY COMMENT NORMAL
--- NOTE | 2017-10-14 11:01 | Progress Note ---
DATE: CARDIOLOGY PROGRESS NOTE DATE OF : 1935 SUBJECTIVE: Patient reports some shortness of breath. Denies any chest pain or palpitations. Reports feeling fatigued. CARDIOVASCULAR MEDICATIONS: Labetalol 10 mg q. 6 hours p.r.n. for hypertension and nitroglycerin 1 gram topical q. 6 hours. OBJECTIVE VITAL SIGNS: Temperature 98.6, pulse rate 67, respiratory rate 20, blood pressure 154/73, and oxygen saturation 96% on 2 liters nasal cannula. GENERAL: Alert and oriented x2, resting comfortably in bed, does not appear to be in any acute distress. LUNGS: Diminished breath sounds throughout. No wheezing, rhonchi, or crackles. CARDIOVASCULAR: Regular rate and rhythm. Normal S1 and S2. ABDOMEN: Rounded, soft, and nontender. Meehan catheter with hematuria noted. EXTREMITIES: Lower extremities, trace edema bilaterally. LAB: WBC 14.08, hemoglobin 10.8, hematocrit 34.3, and platelets 284. Sodium 137, potassium 3.7, glucose 125, BUN 12, creatinine 1.02, and GFR greater than 60. TELEMETRY: Sinus rhythm. ASSESSMENT 1. Chest pain. 2. Coronary artery disease, status post coronary artery bypass grafting and stenting with recent normal stress test at the office. 3. Chronic systolic heart failure, status post implantable-cardioverter defibrillator. 4. Hypertension. 5. Hyperlipidemia. 6. Urothelial carcinoma. 7. Hematuria. RECOMMENDATIONS: Cardiac enzymes and markers have ruled out acute myocardial infarction. CT of the chest without evidence of PE. Continue the above cardiac medications. We will be adding beta esdras to the above list. ICD interrogated recently with normal function and no acute events noted. No further cardiac evaluation is needed at this time. Continue evaluation for urothelial carcinoma and hematuria per urologist. Thank you for letting us participate in this patient's care. Dictated By: Yarelis Strickland NP Job#: [id number] SY
[2017-10-14] MEDS: CEFTRIAXONE SOD 1 GM VIAL IV SCH (21:48)
[2017-10-14] MEDS: MELATONIN 5 MG TABLET PO SCH (21:48)
[2017-10-15] VITALS (8 sets, daily range): BP systolic 149–181; BP diastolic 74–92
[2017-10-15] MEDS: NITROGLYCERIN 2% OINT 1 GM PKT TOP SCH ×2 (01:08→05:28)
[2017-10-15 07:27] LABS: BASOPHILS # (AUTO) 0.1 (0.0-0.1); BASOPHILS % 0.3 % (0.0-1.0); EOSINOPHILS # (AUTO) 0.4 (0.0-0.4); EOSINOPHILS % 2.3 % (0.0-6.0); HEMATOCRIT 34.2 % (38.2-49.6); LYMPHOCYTES # (AUTO) 1.7 (1.0-3.2); LYMPHOCYTES % 11.3 % (18.0-39.1); MEAN CORPUSCULAR HEMOGLOBIN 29.3 pg (28-32); MEAN CORPUSCULAR HGB CONC 32.2 g/dL (31-35); MEAN CORPUSCULAR VOLUME 91.2 fL (81-99); MONOCYTES # (AUTO) 2.3 (0.2-0.8); MONOCYTES % 15.1 % (4.4-11.3); NEUTROPHILS # (AUTO) 10.8 (2.1-6.9); NEUTROPHILS % 70.5 % (38.7-80.0); PLATELET COUNT 301 x10e3/uL (140-360); RED BLOOD COUNT 3.75 x10e6/uL (4.3-5.7); RED CELL DISTRIBUTION WIDTH 14.6 % (11.7-14.4)
[2017-10-15 07:59] LABS: ALANINE AMINOTRANSFERASE 11 IU/L (0-55); ALBUMIN 2.6 g/dL (3.5-5.0); ALBUMIN/GLOBULIN RATIO 0.7 (0.8-2.0); ALKALINE PHOSPHATASE 98 IU/L (40-150); ANION GAP 12.1 mmol/L (8-16); BLOOD UREA NITROGEN 14 mg/dL (7-26); BUN/CREATININE RATIO 14 (6-25); CARBON DIOXIDE 28 mmol/L (22-29); CHLORIDE 104 mmol/L (98-107); CREATININE, SERUM 1.03 mg/dL (0.72-1.25); EST GLOMERULAR FILTRATION RATE > 60 ML/MIN (60-); GLUCOSE 117 mg/dL (74-118); POTASSIUM 4.1 mmol/L (3.5-5.1); SODIUM 140 mmol/L (136-145)
[2017-10-15] MEDS: METOPROLOL SUCCINATE 25 MG TAB XL PO SCH (08:23)
[2017-10-15] MEDS: CEFTRIAXONE SOD 1 GM VIAL IV SCH (08:23)
[2017-10-15 10:08] LABS: EOSINOPHILS % (MANUAL) 5 % (0-7); LYMPHOCYTES % (MANUAL) 13 % (19-48); MONOCYTES % (MANUAL) 14 % (3.4-9.0); NEUTROPHILS % (MANUAL) 68 % (40-74)
[2017-10-15 10:09] LABS: PLATELET ESTIMATE SLIGHTLY INCREASED; PLATELET MORPHOLOGY COMMENT NORMAL; RBC MORPHOLOGY COMMENT NORMAL
[2017-10-15] MEDS: CEFEPIME HCL 1 GM VIAL IV SCH ×2 (10:36→21:36)
--- NOTE | 2017-10-15 12:33 | Progress Note ---
DATE: CARDIOLOGY PROGRESS NOTE SUBJECTIVE: Patient states that he is tired. He denies any chest pain at the moment. He states that it comes and goes. He endorses some shortness of breath, especially when he is walking. CARDIOVASCULAR MEDICATIONS 1. Labetalol 10 mg q. 6 hours p.r.n. for elevated blood pressure. 2. Metoprolol 25 mg p.o. daily. OBJECTIVE VITAL SIGNS: Temperature 98.6, pulse 61, respiratory rate 22, blood pressure 159/82, and oxygen saturation 96% on 2 liters nasal cannula. GENERAL: Alert and oriented x2, resting comfortably in bed, does not appear to be in any acute distress. LUNGS: Diminished breath sounds throughout. No rhonchi, crackles, or wheezes noted. CARDIOVASCULAR: Regular rate and rhythm. Normal S1 and S2. ABDOMEN: Rounded, soft, and nontender. Meehan catheter with bright red urine noted. EXTREMITIES: Lower extremities, trace edema bilaterally. LAB: WBC 15.28, hemoglobin 11.0, hematocrit 34.2, and platelets 301. Sodium 140, potassium 4.1, BUN 14, creatinine 1.03, and GFR greater than 60. TELEMETRY: Sinus rhythm. ASSESSMENT 1. Chest pain. 2. Coronary artery disease, status post coronary artery bypass grafting and stenting with recent normal stress test in our office. 3. Chronic systolic heart failure with implantable-cardioverter defibrillator. 4. Hypertension. 5. Dyslipidemia. 6. Urothelial carcinoma. 7. Hematuria. RECOMMENDATIONS: Continue the above-listed cardiac medications. Cardiac enzymes have ruled out acute myocardial infarction. CT scan with no evidence of PE. Continue above care. Okay to discharge with followup closely in the office in the next 1 to 2 weeks. Continue evaluation for carcinoma and hematuria by urologist. We will continue to follow. Dictated By: Yarelis Strickland NP Job#: [id number] SY
[2017-10-15] MEDS: TRAMADOL HCL 50 MG TAB PO PRN (15:12)
[2017-10-15] MEDS: BELLADONNA/OPIUM 60 MG SUPP PR PRN (16:14)
[2017-10-15] MEDS: MELATONIN 5 MG TABLET PO SCH (21:36)
[2017-10-16] VITALS: BP 123/70
[2017-10-16 04:00] VITALS: BP 148/80
[2017-10-16 07:56] LABS: BASOPHILS # (AUTO) 0.1 (0.0-0.1); BASOPHILS % 0.5 % (0.0-1.0); EOSINOPHILS # (AUTO) 0.7 (0.0-0.4); EOSINOPHILS % 5.6 % (0.0-6.0); HEMATOCRIT 35.7 % (38.2-49.6); HEMOGLOBIN 11.5 g/dL (14.0-18.0); LYMPHOCYTES # (AUTO) 1.5 (1.0-3.2); LYMPHOCYTES % 11.5 % (18.0-39.1); MEAN CORPUSCULAR HGB CONC 32.2 g/dL (31-35); MEAN CORPUSCULAR VOLUME 89.9 fL (81-99); MONOCYTES # (AUTO) 1.9 (0.2-0.8); MONOCYTES % 14.5 % (4.4-11.3); NEUTROPHILS # (AUTO) 8.8 (2.1-6.9); NEUTROPHILS % 67.5 % (38.7-80.0); PLATELET COUNT 281 x10e3/uL (140-360); RED BLOOD COUNT 3.97 x10e6/uL (4.3-5.7); RED CELL DISTRIBUTION WIDTH 14.6 % (11.7-14.4)
[2017-10-16 08:21] LABS: ANION GAP 10.9 mmol/L (8-16); BLOOD UREA NITROGEN 16 mg/dL (7-26); BUN/CREATININE RATIO 17 (6-25); CALCIUM 8.9 mg/dL (8.4-10.2); CARBON DIOXIDE 26 mmol/L (22-29); CHLORIDE 104 mmol/L (98-107); CREATININE, SERUM 0.96 mg/dL (0.72-1.25); EST GLOMERULAR FILTRATION RATE > 60 ML/MIN (60-); GLUCOSE 99 mg/dL (74-118); POTASSIUM 3.9 mmol/L (3.5-5.1); SODIUM 137 mmol/L (136-145)
[2017-10-16] MEDS: METOPROLOL SUCCINATE 25 MG TAB XL PO SCH (08:26)
[2017-10-16] MEDS: CEFEPIME HCL 1 GM VIAL IV SCH (08:27)
[2017-10-16 08:30] VITALS: BP 171/84
[2017-10-16 08:45] LABS: ANISOCYTOSIS SLIGHT; EOSINOPHILS % (MANUAL) 4 % (0-7); LYMPHOCYTES % (MANUAL) 10 % (19-48); MONOCYTES % (MANUAL) 11 % (3.4-9.0); NEUTROPHILS % (MANUAL) 75 % (40-74); RBC MORPHOLOGY COMMENT NORMAL
[2017-10-16 08:46] LABS: PLATELET ESTIMATE ADEQUATE; PLATELET MORPHOLOGY COMMENT NORMAL
[2017-10-16 10:08] VITALS: BP 171/84
[2017-10-16] MEDS: BELLADONNA/OPIUM 60 MG SUPP PR PRN (13:13)
[2017-10-16] MEDS: TRAMADOL HCL 50 MG TAB PO PRN (13:40)
[2017-10-16] MEDS: BISACODYL 5 MG TAB EC PO PRN (13:40)
[2017-10-16 16:29] VITALS: BP 141/64
--- NOTE | 2017-11-23 07:20 | Operative Report ---
DATE OF PROCEDURE: October 13, 2017 PREOPERATIVE DIAGNOSES: 1. Recurrent bladder cancer on the right lateral wall. 2. Hydronephrosis. POSTOPERATIVE DIAGNOSES: 1. Recurrent bladder cancer on the right lateral wall. 2. Hydronephrosis. OPERATIONS PERFORMED: 1. Cystourethroscopy with bilateral ureteral catheterization and retrograde ureteropyelography (separate procedure performed to evaluate the hydronephrosis). 2. Interpretation of retrograde ureteropyelography. 3. Supervision of fluoroscopy, no radiologist present. 4. Cystourethroscopy with transurethral resection of large right-sided bladder wall tumor. ANESTHESIA: General. COMPLICATIONS: None. CLINICAL SUMMARY: Melecio Browne is a 81-year-old man with bladder cancer. He has undergone previous resection. He is brought to the operating room for additional resection. The patient requires an extra-long resectoscope, which was obtained from other institution. The family is aware of the risks of bleeding, infection, injury to adjacent structures, need for additional procedures, and elected to proceed. OPERATIVE PROCEDURE IN DETAIL: Informed consent was verified. Melecio Browne was properly identified, taken to the operating room and placed on the cystoscopy table in supine position. Anesthesia was uneventfully begun. The patient was then carefully and gently repositioned in dorsal lithotomy position with all pressure points well padded. His genitalia were prepared and draped in usual sterile fashion. The 22.5-Faroese cystoscope sheath with the visual obturator in place was atraumatically inserted in patient's urethra. It was guided down a normal distal urethra through some wide-caliber non-clinically significant stricturing at the bulbar region and through the prostate bed, which was significant for being relatively open and unobstructed. Panendoscopy of the urinary bladder revealed bladder tumor in the right lateral wall. This tumor appeared to be cancerous as well as potentially invasive. No additional lesions were identified. A ureteral catheter was used to cannulate each ureter, and retrograde ureteral pyelograms were performed. Interpretation of retrograde ureteropyelography: Contrast was instilled in retrograde fashion bilaterally. There was chronic hydroureteronephrosis. There was tortuosity of both ureters. It is unclear whether the patient's right intrarenal collecting system is completely free of any filling defect. Opacification was not well achieved due to this hydronephrosis and tortuosity. There may be a retrocaval ureter present on the right hand side. Nevertheless, unobstructed drainage was observed fluoroscopically. We could not well opacify the renal collecting system on the left hand side. The patient had previous recent retrograde pyelograms that opacified both intrarenal collecting systems well and demonstrated no filling defects and no suspicious lesions. We utilized the extra-long resectoscope sheath, which was inserted atraumatically. We then proceeded performing a transurethral resection of this very large greater than 5 cm bladder tumor from the right lateral wall. We progressively resected all visible tumor and fulgurated the base of the lesion with surrounding 1 cm of margin. Excellent hemostasis was achieved. The resectoscope was withdrawn. A Meehan catheter was placed. It was irrigated to and fro to ensure it worked properly. A belladonna and opium suppository was placed, and the patient was uneventfully reversed from anesthesia and taken to recovery room in stable condition. There were no complications to the procedure. Patient tolerated the procedure well. There was diverticulum near the bladder tumor and this diverticulum was not involved with cancer. Most of the tumor was resected from the right lateral wall, however, this tumor did extend a little bit to the anterior bladder wall and it was resected from there as well. The plans will be to have the patient go for recuperation and additional rehabilitation to the [facility] senior living facility, and we will of course follow the patient up on a long-term basis and plan on future cystoscopy. Job#: [id number] cc:NACHO OCONNOR MD
== END 2017-10-16 18:09 | DRG 669 ==
LOC: ER 16:25 → ERHOLD 22:42 → IMCU 23:45 → OBSVTOIN 10-12 08:33 → MED/SURG3 10-12 13:06
PROC: BT141ZZ Fluoroscopy of Kidneys, Ureters and Bladder using Low Osmolar Contrast (ICD-10-PCS; 2017-10-13)
PROC: 4B02XTZ Measurement of Cardiac Defibrillator, External Approach (ICD-10-PCS; 2017-10-13)
PROC: 0TBB8ZZ Excision of Bladder, Via Natural or Artificial Opening Endoscopic (ICD-10-PCS; principal; 2017-10-13 10:30)
PROC: 0T788ZZ Dilation of Bilateral Ureters, Via Natural or Artificial Opening Endoscopic (ICD-10-PCS; 2017-10-13 10:30)
DX: C67.6 Malignant neoplasm of ureteric orifice (principal); I47.1 Supraventricular tachycardia; I50.22 Chronic systolic (congestive) heart failure; N39.0 Urinary tract infection, site not specified; I13.0 Hypertensive heart and chronic kidney disease with heart failure and stage 1 through stage 4 chronic kidney disease, or unspecified chronic kidney disease; N17.9 Acute kidney failure, unspecified; I25.10 Atherosclerotic heart disease of native coronary artery without angina pectoris; I11.0 Hypertensive heart disease with heart failure; R07.9 Chest pain, unspecified; Z95.810 Presence of automatic (implantable) cardiac defibrillator; Z95.5 Presence of coronary angioplasty implant and graft; E03.9 Hypothyroidism, unspecified; E78.5 Hyperlipidemia, unspecified; N18.3 Chronic kidney disease, stage 3 (moderate); R60.0 Localized edema
CPT/HCPCS: 36415; 71045; 71260; 74420; 80048; 80053; 81001; 82550; 82553; 82948; 83880; 84484; 85025; 85610; 85730; 88307; 93005; 93970; 96361; 99284; G0378; J0692; J0696; J1100; J2001; J2060; J2250; J2270; J2405; J7030; Q9967

== ENCOUNTER 2018-02-20 22:44 | Inpatient (IN) | payer MEDICARE ==
[~2018-02-20] VITALS: Ht 195.6 cm; Wt 102.2 kg
[2018-02-20 23:15] LABS: BASOPHILS # (AUTO) 0.1 (0.0-0.1); BASOPHILS % 0.4 % (0.0-1.0); EOSINOPHILS # (AUTO) 0.4 (0.0-0.4); EOSINOPHILS % 2.8 % (0.0-6.0); HEMATOCRIT 36.9 % (38.2-49.6); HEMOGLOBIN 11.8 g/dL (14.0-18.0); LYMPHOCYTES # (AUTO) 1.9 (1.0-3.2); LYMPHOCYTES % 14.1 % (18.0-39.1); MEAN CORPUSCULAR VOLUME 87.6 fL (81-99); MONOCYTES # (AUTO) 1.3 (0.2-0.8); NEUTROPHILS # (AUTO) 9.7 (2.1-6.9); PLATELET COUNT 339 x10e3/uL (140-360); RED BLOOD COUNT 4.21 x10e6/uL (4.3-5.7); RED CELL DISTRIBUTION WIDTH 17.4 % (11.7-14.4)
[2018-02-20 23:38] LABS: ALBUMIN 3.3 g/dL (3.5-5.0); ALBUMIN/GLOBULIN RATIO 0.8 (0.8-2.0); ANION GAP 18.1 mmol/L (8-16); CALCIUM 9.6 mg/dL (8.4-10.2); CREATININE, SERUM 1.76 mg/dL (0.72-1.25); MAGNESIUM 1.8 MG/DL (1.3-2.1); POTASSIUM 4.1 mmol/L (3.5-5.1)
[2018-02-20] MEDS ORDERED: MORPHINE SULFATE 2 MG/ML SYR IV STA (23:38)
[2018-02-20] MEDS ORDERED: ONDANSETRON HCL INJ 2 MG/ML VIAL IV STA (23:38)
[2018-02-20 23:40] LABS: INR 1.11; PROTHROMBIN TIME 13.5 seconds (11.9-14.5)
[2018-02-20 23:41] LABS: PARTIAL THROMBOPLASTIN TIME 37.2 seconds (23.8-35.5)
[2018-02-21] VITALS (7 sets, daily range): BP systolic 133–179; BP diastolic 68–98
[2018-02-21 00:38] LABS: BILIRUBIN,URINE NEGATIVE (NEGATIVE); CLARITY,URINE CLOUDY (CLEAR); COLOR,URINE RED (YELLOW); KETONES,URINE NEGATIVE (NEGATIVE); LEUKOCYTE ESTERASE ,URINE 2+ (NEGATIVE); NITRITE,URINE NEGATIVE (NEGATIVE); PROTEIN,URINE DIPSTICK 2+ (NEGATIVE); URINE UROBILINOGEN 0.2 mg/dL (0.2 - 1)
--- NOTE | 2018-02-21 00:45 | Diagnostic Imaging Report ---
ADDENDUM #1 Dose modulation, iterative reconstruction, and/or weight based adjustment of the mA/kV was utilized to reduce the radiation dose to as low as reasonably achievable. Signed by: Dr. Norberto Rosado M.D. on 03/13/2018 4:31 PM ORIGINAL REPORT Exam: Head and cervical spine CT without IV contrast History: Fall, pain Comparison studies: Head CT 02/15/2014 Technique: Axial images were obtained from the brain and cervical spine. Coronal and sagittal images reconstructed from the axial data. Intravenous contrast: None Findings: Head CT: Scalp: Small posterior frontal scalp laceration and hematoma near the midline. Bones: No fractures, blastic or lytic lesions. Extra-axial spaces: No masses. No fluid collections. Brain sulci: Mild to moderately prominent Ventricles: Mild to moderate compensatory dilatation. No hydrocephalus. Parenchyma: No mass, acute hemorrhage or acute or chronic cortical vascular insults. A few hypodensities in the supratentorial white matter are nonspecific but most compatible with chronic microvascular ischemic changes. Sellar/suprasellar region: No abnormalities. Craniocervical junction: The foramen magnum is patent. No Chiari one malformation. Cervical spine CT: Fractures: None. Soft tissues: No gross acute abnormalities.. Atlantoaxial articulation: Intact. Alignment: Mild cervical kyphotic curvature. Cervicomedullary junction: No abnormalities. The foramen magnum is patent. Vertebrae: No infection or neoplasm. Degenerative changes: Mildly degenerated cervical disks, greatest at C5-C6 where there is a small disc osteophyte complex which indents the thecal sac and result in mild canal stenosis. Mild multilevel facet arthrosis. Severe left and moderate right foraminal stenosis at C5-C6 due to uncovertebral facet arthrosis. Incidental findings: Atherosclerotic calcifications in the carotid bulbs, carotid siphons and right intradural vertebral artery. IMPRESSION: Head CT: 1. Small posterior frontal scalp hematoma and laceration without retained hyperdense foreign body or underlying fracture. 2. No acute intracranial abnormalities. 3. Mild to moderate generalized volume loss, slightly increased since 2013. 4. Mild chronic microvascular ischemic changes. Cervical spine CT: 1. No cervical spine fracture or subluxation. 2. Degenerative changes, greatest at C5-C6 as described. 3. Cannot adequately evaluate ligament, spinal cord and or vascular abnormalities on the basis of this examination. Signed by: Dr. Norberto Rosado M.D. on 02/21/2018 12:42 AM
[2018-02-21 00:53] LABS: EPITHELIAL CELLS,URINE RARE /LPF; RBC,URINE >50 /HPF (0-5); WBC,URINE (MAN) 21-50 /HPF (0-5)
[2018-02-21 00:54] LABS: BACTERIA,URINE FEW /HPF
--- NOTE | 2018-02-21 01:57 | Diagnostic Imaging Report ---
HIP RIGHT 2-3 VW (+/- PELVIS) Comparison: None Clinical history: Fall, pain Findings: Postsurgical changes status post 3 screw fixation of the right femoral neck. Fracture line is seen through the greater trochanter extending to the level of the screw. Mild bilateral hip degenerative changes. Vascular calcifications. Impression: Right greater trochanter/ander-hardware fracture. Signed by: Dr Nina Henderson MD on 02/21/2018 1:53 AM
[2018-02-21] MEDS: CEFTRIAXONE SOD 1 GM VIAL IV SCH ×2 (01:58→14:56)
--- NOTE | 2018-02-21 02:20 | Diagnostic Imaging Report ---
CHEST SINGLE (PORTABLE), 02/20/2018 10:56 PM Technique: CHEST SINGLE (PORTABLE) Comparison: 10/10/2017 Clinical history: Fall Findings: See Impression Impression: 1. Lines/Tubes: Stable left chest wall pacer, right port at the cavoatrial junction, median sternotomy, CABG markers and mediastinal clips. 2. Stable mildly enlarged cardiomediastinal silhouette with tortuous aorta. 3. No consolidation or edema. 4. No effusion or pneumothorax. Signed by: Dr Nina Henderson MD on 02/21/2018 2:17 AM
--- NOTE | 2018-02-21 02:54 | Diagnostic Imaging Report ---
EXAM: CT ABDOMEN/PELVIS WO DATE: 02/20/2018 10:56 PM INDICATION: Fall, hip pain COMPARISON: 07/02/2017 TECHNIQUE: The abdomen and pelvis were scanned using a multidetector helical scanner. Coronal and sagittal reformations were obtained. IV Contrast: 100 ml Isovue 300/370 FINDINGS: Lack of IV contrast decreases sensitivity in evaluating abdominal and pelvic organs. LOWER THORAX: Partially imaged pacing leads, coronary artery calcification and postsurgical changes from median sternotomy. LIVER/BILIARY: Newly evident hypodense liver lesions, measuring 3 cm of the caudate, 3.5 cm of segment 5/6, 2.8 cm of segment 8. GALLBLADDER: Unremarkable SPLEEN: Enlarging splenic lesion measuring 7 x 6.6 cm, prior 4.2 x 4.1 cm. PANCREAS: Unremarkable ADRENALS: No nodules KIDNEYS: Stable bilateral renal cystic lesions. Air is seen in the left renal collecting system, likely iatrogenic; mild left ureterectasis without significant hydronephrosis. Increased/new moderate right hydroureteronephrosis to the level of the bladder. Masslike lesion is seen centered in the right inferior renal calyces and pelvis measuring 2.9 x 2.6 x 4 cm. GI TRACT: No bowel obstruction. Diverticulosis. Normal appendix. VESSELS: Moderate atherosclerotic calcifications with stable infrarenal abdominal aortic aneurysm measuring 3 cm. Enlarged internal iliac branch coursing to the right bladder mass like thickening. PERITONEUM/RETROPERITONEUM: No free air or fluid LYMPH NODES: New abdominopelvic adenopathy. For example a gastrohepatic node measures 1.6 cm, a precaval node 2.4 cm in short axis, a right retroperitoneal node 2.5 cm and right external iliac node 1.4 cm. REPRODUCTIVE ORGANS/BLADDER: The bladder is decompressed with irregular right lateral bladder wall thickening with spiculation and haziness extending to the perivesicular space. The Meehan catheter is inflated within the prostatic urethra. BONES: Minimally displaced fracture of the right greater trochanter; no underlying bone lesion. Three right femoral neck transfixation screws are noted. Scattered degenerative changes. IMPRESSION: 1. Meehan catheter is inflated within the prostatic urethra. 2. Minimally displaced right greater trochanter fracture. 3. Irregular right bladder wall thickening, suspicious for recurrent tumor. 4. Increased/new moderate right hydroureteronephrosis likely related to tumor or ureteral stricture. 5. Upper tract disease with large mass centered in the right inferior renal calyces and pelvis. 6. Metastatic disease including liver, splenic and clay metastases. Signed by: Dr Nina Henderson MD on 02/21/2018 2:51 AM
[2018-02-21] MEDS: AZITHROMYCIN 500MG/NS 250 ML 250 ML IV SCH ×2 (02:58→09:26)
[2018-02-21] MEDS ORDERED: MORPHINE SULFATE 2 MG/ML SYR ONE (03:09)
[2018-02-21] MEDS: MORPHINE SULFATE 2 MG/ML SYR IV PRN ×3 (03:21→11:44)
[2018-02-21] MEDS ORDERED: LIDOCAINE JELLY 2% 10ML URO-JET ONE ×2 (03:30→04:10)
[2018-02-21] MEDS ORDERED: ONDANSETRON HCL INJ 2 MG/ML VIAL IV PRN (03:30)
[2018-02-21] MEDS ORDERED: SODIUM CHLORIDE 0.9% 1000ML 1,000 ML IV ONE (03:45)
[2018-02-21] MEDS ORDERED: LIDOCAINE JELLY 2% 10ML URO-JET TOP ONE ×2 (04:30)
[2018-02-21] MEDS ORDERED: MORPHINE SULFATE 2 MG/ML SYR IV STA (04:51)
[2018-02-21 07:16] LABS: CREATINE KINASE MB 0.9 ng/mL (0-5.0)
[2018-02-21 07:39] LABS: BASOPHILS # (AUTO) 0.1 (0.0-0.1); BASOPHILS % 0.3 % (0.0-1.0); EOSINOPHILS # (AUTO) 0.4 (0.0-0.4); EOSINOPHILS % 2.2 % (0.0-6.0); HEMATOCRIT 34.6 % (38.2-49.6); HEMOGLOBIN 10.8 g/dL (14.0-18.0); LYMPHOCYTES # (AUTO) 2.2 (1.0-3.2); LYMPHOCYTES % 13.9 % (18.0-39.1); MEAN CORPUSCULAR HEMOGLOBIN 27.7 pg (28-32); MEAN CORPUSCULAR HGB CONC 31.2 g/dL (31-35); MEAN CORPUSCULAR VOLUME 88.7 fL (81-99); MONOCYTES % 12.9 % (4.4-11.3); NEUTROPHILS % 70.3 % (38.7-80.0); PLATELET COUNT 300 x10e3/uL (140-360); RED CELL DISTRIBUTION WIDTH 17.5 % (11.7-14.4)
[2018-02-21 07:53] LABS: ALBUMIN 2.9 g/dL (3.5-5.0); ALBUMIN/GLOBULIN RATIO 0.8 (0.8-2.0); ANION GAP 14.2 mmol/L (8-16); CREATININE, SERUM 1.65 mg/dL (0.72-1.25); POTASSIUM 4.2 mmol/L (3.5-5.1)
[2018-02-21] MEDS ORDERED: CLONIDINE HCL 0.1 MG TAB PO PRN ×2 (09:45)
--- NOTE | 2018-02-21 10:33 | History and Physical ---
CHIEF COMPLAINT: "I fell." HISTORY OF PRESENT ILLNESS: This is an 82-year-old white male who suffered a mechanical fall on the day of admission. In the emergency room, the patient had an x-ray of the right hip that revealed a right greater trochanteric perihardware fracture. The patient has a recent diagnosis of bladder cancer. In the emergency room, he underwent a chest x-ray, which was unremarkable, but did reveal a mildly enlarged cardiomediastinal silhouette. However, the patient underwent a CT of the abdomen and pelvis without contrast that confirmed the minimally displaced right greater trochanteric fracture as well as irregular right bladder wall thickening suspicious for recurrent tumor. He was also found to have increased moderate right hydroureteronephrosis, likely related to tumor, according to the radiologist. The patient was also found to have a large mass centered in the right inferior renal pelvis. Moreover, this imaging test revealed findings consistent with metastatic disease in the liver, splenic and clay areas. Also in the emergency room, the patient was found to have white blood cell count of 13,400 with 72% segmented neutrophils. On admission, the patient's BUN and creatinine were 21 and 1.76 respectively. The patient was admitted for further evaluation and treatment. REVIEW OF SYSTEMS GENERAL: The patient has lost 25 pounds in the last 7 months. No fever or chills. HEENT: No headache. No vision changes. CARDIOVASCULAR: No chest pain. No shortness of breath or cough. GI: The patient complains of abdominal distention for the past couple of days. No nausea, vomiting, or diarrhea. : The patient is having gross hematuria. NEUROMUSCULAR: He is globally weak. He has lost a considerable amount of weight in the last few months. He fell on the day of admission. ALLERGIES: STATINS. PAST MEDICAL HISTORY 1. Bladder cancer diagnosed in June 2017. 2. Hypertensive heart disease. 3. Congestive heart failure. 4. Previous tobacco smoker. 5. History of recurrent kidney stones. 6. Chronic constipation. 7. Hypothyroidism. 8. Remote history of prostate cancer. SURGICAL HISTORY 1. Right hip surgery, repair of fracture. 2. AICD placement. 3. Heart catheterization. SOCIAL HISTORY: The patient is single, but he lives with his adult son. He was a heavy tobacco smoker but quit in 1999. The patient states he does drink alcohol in the form of liquor sporadically. FAMILY HISTORY: Noncontributory. MEDICATIONS 1. Corinne 10 per 325 one every 6 hours p.r.n. pain. 2. Carvedilol 12.5 mg b.i.d. 3. Clonazepam 0.5 mg nightly. 4. Furosemide 40 mg daily. 5. Levothyroxine 150 mcg daily. 6. Centrum Silver once daily. 7. Polyethylene glycol 17 g daily. 8. Senna-S 1 daily. 9. Tramadol 50 mg q.8 h. p.r.n. pain. PHYSICAL EXAMINATION GENERAL: He is awake and alert. He is oriented to himself, not time or place. He seems to get confused easily. His adult son is at bedside. Height is 6 feet 5 inches. Weight is 220 pounds. BMI is 26. Patient's weight was 241 pounds in June 2017. INTEGUMENT: Skin is warm and dry. No pallor, jaundice or diaphoresis. HEENT: Anicteric sclerae with moist mucous membranes. The patient has a frontal scalp laceration. NECK: Supple. No evidence of jugular venous distention. CARDIOVASCULAR: Distant heart sounds. Regular rate and rhythm. LUNGS: No rales. No rhonchi. No wheezing. ABDOMEN: Soft. : The patient has a Meehan catheter in place, and there is obvious gross hematuria. EXTREMITIES: The right lower extremity is shorter than the left. NEUROLOGIC: No gross focal deficits appreciated. DIAGNOSES 1. Right femoral neck fracture secondary to mechanical fall. 2. Bladder cancer with likely liver, clay and splenic metastases. 3. New right-sided renal mass likely related to the patient's metastatic bladder cancer. 4. Acute renal failure. 5. Urinary tract infection. 6. Chronic diastolic congestive heart failure. 7. Anemia secondary to chronic disease. PLAN 1. Pain control. 2. Gentle intravenous fluids. 3. Follow renal function. 4. Consult urology for the patient's metastatic bladder cancer and gross hematuria. 5. Consult orthopedic surgery for the patient's right femoral neck fracture. 6. Informed the patient's adult son that the patient is likely not a candidate for hip surgery. 7. Intravenous antibiotics. I spent an hour in the care of this patient. Job#: [id number]
[2018-02-21 16:30] LABS: CREATINE KINASE MB 0.9 ng/mL (0-5.0)
[2018-02-22] VITALS (7 sets, daily range): BP systolic 133–161; BP diastolic 64–87
[2018-02-22] MEDS: CEFTRIAXONE SOD 1 GM VIAL IV SCH ×2 (01:44→14:10)
[2018-02-22 04:37] LABS: BASOPHILS # (AUTO) 0.1 (0.0-0.1); BASOPHILS % 0.4 % (0.0-1.0); EOSINOPHILS % 6.2 % (0.0-6.0); HEMATOCRIT 34.4 % (38.2-49.6); HEMOGLOBIN 10.8 g/dL (14.0-18.0); LYMPHOCYTES # (AUTO) 1.5 (1.0-3.2); LYMPHOCYTES % 9.8 % (18.0-39.1); MEAN CORPUSCULAR HEMOGLOBIN 27.8 pg (28-32); MEAN CORPUSCULAR HGB CONC 31.4 g/dL (31-35); MEAN CORPUSCULAR VOLUME 88.7 fL (81-99); MONOCYTES % 12.4 % (4.4-11.3); NEUTROPHILS # (AUTO) 11.1 (2.1-6.9); NEUTROPHILS % 70.9 % (38.7-80.0); PLATELET COUNT 283 x10e3/uL (140-360); RED BLOOD COUNT 3.88 x10e6/uL (4.3-5.7); RED CELL DISTRIBUTION WIDTH 17.9 % (11.7-14.4)
[2018-02-22 05:04] LABS: ALBUMIN 2.8 g/dL (3.5-5.0); ALBUMIN/GLOBULIN RATIO 0.7 (0.8-2.0); ANION GAP 15.2 mmol/L (8-16); CALCIUM 9.1 mg/dL (8.4-10.2); CREATININE, SERUM 1.64 mg/dL (0.72-1.25); POTASSIUM 4.2 mmol/L (3.5-5.1)
[2018-02-22] MEDS: MORPHINE SULFATE 2 MG/ML SYR IV PRN ×2 (06:42→12:16)
[2018-02-22 06:51] LABS: EOSINOPHILS % (MANUAL) 6 % (0-7); LYMPHOCYTES % (MANUAL) 11 % (19-48); MONOCYTES % (MANUAL) 7 % (3.4-9.0); NEUTROPHILS % (MANUAL) 73 % (40-74)
[2018-02-22 06:52] LABS: ANISOCYTOSIS SLIGHT; HYPOCHROMASIA SLIGHT; PLATELET ESTIMATE ADEQUATE; PLATELET MORPHOLOGY COMMENT NORMAL; RBC MORPHOLOGY COMMENT NORMAL
[2018-02-22] MEDS ORDERED: SODIUM CHLORIDE 0.9% 250ML 250 ML ONE (08:32)
[2018-02-22] MEDS: AZITHROMYCIN 500MG/NS 250 ML 250 ML IV SCH (08:40)
[2018-02-22] MEDS ORDERED: TAMSULOSIN HCL 0.4 MG CAP PO STA (09:10)
[2018-02-22] MEDS ORDERED: TAMSULOSIN HCL 0.4 MG CAP PO SCH ×3 (09:15→21:00)
[2018-02-22] MEDS ORDERED: TAMSULOSIN HCL 0.4 MG CAP PO ONE (09:30)
[2018-02-22 09:39] LABS: INR 1.14; PROTHROMBIN TIME 13.7 seconds (11.9-14.5)
[2018-02-22 09:40] LABS: PARTIAL THROMBOPLASTIN TIME 50.2 seconds (23.8-35.5)
[2018-02-22] MEDS ORDERED: ONDANSETRON HCL 4 MG ORAL DISINTEGRATING TAB PO PRN (11:00)
[2018-02-22] MEDS: METOCLOPRAMIDE HCL 10 MG TAB PO SCH ×3 (13:10→20:32)
[2018-02-22] MEDS: PANTOPRAZOLE SOD 40 MG TABEC PO SCH ×2 (13:10→17:00)
[2018-02-22] MEDS: CARVEDILOL 12.5 MG TAB PO SCH (13:10)
[2018-02-22] MEDS ORDERED: METOCLOPRAMIDE HCL 10 MG TAB PO ONE (15:00)
[2018-02-22] MEDS: GABAPENTIN 300 MG CAP PO SCH ×2 (15:41→20:32)
[2018-02-22] MEDS ORDERED: PANTOPRAZOLE SOD 40 MG TABEC PO ONE (17:00)
[2018-02-23] VITALS: BP 167/87
[2018-02-23] MEDS: CEFTRIAXONE SOD 1 GM VIAL IV SCH ×2 (01:45→14:00)
[2018-02-23] MEDS: MORPHINE SULFATE 2 MG/ML SYR IV PRN (03:07)
[2018-02-23 03:58] VITALS: BP 159/86
[2018-02-23 04:38] LABS: BASOPHILS # (AUTO) 0.1 (0.0-0.1); BASOPHILS % 0.5 % (0.0-1.0); EOSINOPHILS # (AUTO) 1.2 (0.0-0.4); EOSINOPHILS % 7.9 % (0.0-6.0); HEMATOCRIT 32.9 % (38.2-49.6); HEMOGLOBIN 10.4 g/dL (14.0-18.0); LYMPHOCYTES # (AUTO) 1.7 (1.0-3.2); LYMPHOCYTES % 11.7 % (18.0-39.1); MEAN CORPUSCULAR HEMOGLOBIN 28.3 pg (28-32); MEAN CORPUSCULAR HGB CONC 31.6 g/dL (31-35); MEAN CORPUSCULAR VOLUME 89.4 fL (81-99); MONOCYTES # (AUTO) 2.2 (0.2-0.8); MONOCYTES % 14.7 % (4.4-11.3); NEUTROPHILS # (AUTO) 9.6 (2.1-6.9); NEUTROPHILS % 64.8 % (38.7-80.0); PLATELET COUNT 263 x10e3/uL (140-360); RED BLOOD COUNT 3.68 x10e6/uL (4.3-5.7); RED CELL DISTRIBUTION WIDTH 17.7 % (11.7-14.4)
[2018-02-23] MEDS: LEVOTHYROXINE SODIUM 75 MCG TAB PO SCH (05:03)
[2018-02-23 05:10] LABS: ALBUMIN 2.8 g/dL (3.5-5.0); ALBUMIN/GLOBULIN RATIO 0.8 (0.8-2.0); ANION GAP 10.8 mmol/L (8-16); CREATININE, SERUM 1.43 mg/dL (0.72-1.25); POTASSIUM 3.8 mmol/L (3.5-5.1)
[2018-02-23 07:14] LABS: ANISOCYTOSIS SLIG; EOSINOPHILS % (MANUAL) 8 % (0-7); HYPOCHROMASIA SLIGHT; LYMPHOCYTES % (MANUAL) 11 % (19-48); MONOCYTES % (MANUAL) 15 % (3.4-9.0); MYELOCYTES % (MANUAL) 1 % (0-0); NEUTROPHILS % (MANUAL) 65 % (40-74); RBC MORPHOLOGY COMMENT NORMAL
[2018-02-23 07:15] LABS: PLATELET ESTIMATE ADEQUATE; PLATELET MORPHOLOGY COMMENT NORMAL
[2018-02-23 08:00] VITALS: BP 161/81
[2018-02-23] MEDS: AZITHROMYCIN 500MG/NS 250 ML 250 ML IV SCH (08:39)
[2018-02-23] MEDS: CARVEDILOL 12.5 MG TAB PO SCH (08:40)
[2018-02-23] MEDS: SERTRALINE HCL 50 MG TAB PO SCH (09:00)
[2018-02-23] MEDS ORDERED: CARVEDILOL 12.5 MG TAB PO ONE (09:00)
[2018-02-23] MEDS ORDERED: TAMSULOSIN HCL 0.4 MG CAP PO SCH (09:00)
[2018-02-23] MEDS: POLYETHYLENE GLYCOL 3350 17 GM PACK PO SCH (09:00)
[2018-02-23] MEDS: TAMSULOSIN HCL 0.4 MG CAP PO SCH (09:00)
[2018-02-23] MEDS: GABAPENTIN 300 MG CAP PO SCH ×3 (09:00→22:29)
[2018-02-23] MEDS: METOCLOPRAMIDE HCL 10 MG TAB PO SCH ×3 (09:00→22:29)
[2018-02-23] MEDS: PANTOPRAZOLE SOD 40 MG TABEC PO SCH ×2 (09:00→17:00)
[2018-02-23] MEDS ORDERED: LEVOTHYROXINE SODIUM 100 MCG TAB PO SCH (09:00)
[2018-02-23 12:00] VITALS: BP 135/76
[2018-02-23] MEDS ORDERED: SEVOFLURANE INHAL SOLN 250 ML PEN BTL ONE (16:40)
[2018-02-23] MEDS ORDERED: LIDOCAINE HCL 2% LOCAL INJ 5 ML SDV VIAL INJ ONE (16:40)
[2018-02-23] MEDS ORDERED: PROPOFOL IV EMULSION 10 MG/ML 20 ML VIAL ONE (16:40)
[2018-02-23] MEDS ORDERED: IOPAMIDOL 300MG/ML 50ML INFUS..BTL IV ONE ×2 (18:49→19:50)
[2018-02-23] MEDS ORDERED: MORPHINE SULFATE 2 MG/ML SYR ONE ×3 (20:08→21:30)
[2018-02-23] MEDS ORDERED: DIPHENHYDRAMINE HCL INJ 50 MG/ML VIAL ONE (20:11)
[2018-02-23] MEDS ORDERED: FENTANYL CITRATE/PF 100MCG/2 ML INJ ONE (20:39)
[2018-02-23] MEDS ORDERED: HYDRALAZINE HCL 20 MG/ML VIAL ONE (21:21)
[2018-02-23 22:10] VITALS: BP 155/76
[2018-02-23] MEDS: CLONAZEPAM 1 MG TAB PO PRN (22:30)
[2018-02-23] MEDS ORDERED: HALOPERIDOL LACTATE 5 MG/ML VIAL IV PRN (23:15)
[2018-02-24] VITALS (9 sets, daily range): BP systolic 103–143; BP diastolic 59–75
[2018-02-24] MEDS: CEFTRIAXONE SOD 1 GM VIAL IV SCH (02:36)
[2018-02-24] MEDS: ACETAMINOPHEN 325 MG TAB PO PRN ×2 (02:37→17:40)
[2018-02-24] MEDS: MORPHINE SULFATE 2 MG/ML SYR IV PRN ×3 (04:50→20:30)
[2018-02-24 05:25] LABS: BASOPHILS # (AUTO) 0.1 (0.0-0.1); BASOPHILS % 0.3 % (0.0-1.0); EOSINOPHILS # (AUTO) 0.1 (0.0-0.4); EOSINOPHILS % 0.4 % (0.0-6.0); HEMATOCRIT 34.4 % (38.2-49.6); HEMOGLOBIN 11.3 g/dL (14.0-18.0); LYMPHOCYTES # (AUTO) 0.7 (1.0-3.2); LYMPHOCYTES % 2.1 % (18.0-39.1); MEAN CORPUSCULAR HEMOGLOBIN 28.8 pg (28-32); MEAN CORPUSCULAR HGB CONC 32.8 g/dL (31-35); MEAN CORPUSCULAR VOLUME 87.5 fL (81-99); MONOCYTES # (AUTO) 3.2 (0.2-0.8); MONOCYTES % 9.6 % (4.4-11.3); NEUTROPHILS # (AUTO) 28.5 (2.1-6.9); NEUTROPHILS % 86.6 % (38.7-80.0); PLATELET COUNT 296 x10e3/uL (140-360); RED BLOOD COUNT 3.93 x10e6/uL (4.3-5.7); RED CELL DISTRIBUTION WIDTH 17.5 % (11.7-14.4)
[2018-02-24 05:41] LABS: ANION GAP 14.7 mmol/L (8-16); CALCIUM 8.9 mg/dL (8.4-10.2); CREATININE, SERUM 2.14 mg/dL (0.72-1.25); POTASSIUM 3.7 mmol/L (3.5-5.1)
[2018-02-24] MEDS: LEVOTHYROXINE SODIUM 75 MCG TAB PO SCH (06:21)
[2018-02-24 06:30] LABS: LYMPHOCYTES % (MANUAL) 6 % (19-48); MONOCYTES % (MANUAL) 11 % (3.4-9.0); NEUTROPHILS % (MANUAL) 83 % (40-74); PLATELET ESTIMATE ADEQUATE; PLATELET MORPHOLOGY COMMENT NORMAL; RBC MORPHOLOGY COMMENT NORMAL
[2018-02-24] MEDS: AZITHROMYCIN 500MG/NS 250 ML 250 ML IV SCH (09:55)
[2018-02-24] MEDS: METOCLOPRAMIDE HCL 10 MG TAB PO SCH ×3 (09:56→21:53)
[2018-02-24] MEDS: CARVEDILOL 12.5 MG TAB PO SCH (09:56)
[2018-02-24] MEDS: PANTOPRAZOLE SOD 40 MG TABEC PO SCH ×2 (09:56→17:00)
[2018-02-24] MEDS: GABAPENTIN 300 MG CAP PO SCH ×3 (09:56→21:53)
[2018-02-24] MEDS: SERTRALINE HCL 50 MG TAB PO SCH (09:56)
[2018-02-24] MEDS: TAMSULOSIN HCL 0.4 MG CAP PO SCH (09:56)
[2018-02-24] MEDS: POLYETHYLENE GLYCOL 3350 17 GM PACK PO SCH (10:00)
[2018-02-24 11:50] LABS: BILIRUBIN,URINE 2+ (NEGATIVE); CLARITY,URINE CLOUDY (CLEAR); COLOR,URINE RED (YELLOW); KETONES,URINE TRACE (NEGATIVE); LEUKOCYTE ESTERASE ,URINE 2+ (NEGATIVE); NITRITE,URINE POSITIVE (NEGATIVE); PROTEIN,URINE DIPSTICK 2+ (NEGATIVE); URINE UROBILINOGEN 1 mg/dL (0.2 - 1)
[2018-02-24 11:52] LABS: RBC,URINE >50 /HPF (0-5); WBC,URINE (MAN) >50 /HPF (0-5)
[2018-02-24 11:53] LABS: BACTERIA,URINE MANY /HPF; EPITHELIAL CELLS,URINE FEW /LPF; MUCUS,URINE FEW (RARE)
--- NOTE | 2018-02-24 14:04 | Progress Note ---
DATE: February 24, 2018 INTERNAL MEDICINE PROGRESS NOTE Patient is doing fair. He has a fever today. He had cystoscopy done by Dr. Gonzalez yesterday. PHYSICAL EXAMINATION VITALS: Blood pressure 139/73, temperature 97.1, heart rate 74 per minute, respiratory rate is 20 per minute, oxygen saturation is 94%. HEART: Shows regular rhythm. Normal S1 and S2 sounds. LUNGS: Clear bilaterally. ABDOMEN: Soft. EXTREMITIES: Show no evidence of cyanosis or trauma. LAB: On the BMP, sodium 137, potassium 3.7, chloride 103, CO2 23, BUN 26, creatinine 2.14, glucose 131. On the CBC, white blood count 32,800, hemoglobin 11.3, hematocrit 34.4, and platelet count of 186,000. PT 13.7, INR 1.14 and PTT 50.2. AST 15, ALT 9, total bilirubin 0.3, alkaline phosphatase 102. Blood culture and urine culture has been sent. The prior blood culture was negative. He has had cystoscopy done. He had dilatation and bilateral stents, cystogram and placement of Meehan catheter was done by Dr. Gonzalez yesterday. FINAL IMPRESSION 1. Urinary tract infection. 2. Acute renal failure. 3. Right hip fracture which is closed. 4. Fever: Rule out sepsis. 5. Bladder cancer. 6. Right hydronephrosis. 7. Anemia of chronic disease. PLAN OF TREATMENT: Continue Zithromax once a day. Ceftriaxone 1 gm IV twice a day. Morphine 2 mg IV q.3 h. as needed. Clonazepam 1 mg at bedtime as needed. Zofran 4 mg twice a day as needed. Haldol 2 mg IV q.6 h. as needed for agitation. Clonidine 0.1 mg q.4 h. as needed. Gabapentin 300 mg 3 times a day. Protonix 40 mg twice a day. Tylenol 350 mg q.8 h. Morphine 2 mg IV q.3 h. Flomax 0.4 mg daily. Levothyroxine 150 mcg daily. Carvedilol 12.5 mg daily. Metoclopramide 10 mg 3 times a day and sertraline 25 mg daily. Case discussed with Dr. Gonzalez and also with the family at the bedside. Time spent 45 minutes. Job#: [id number] [place]
[2018-02-24 16:52] LABS: EOSINOPHIL SMEAR,URINE PRESENT (NONE SEEN)
[2018-02-24 16:54] LABS: CREATININE,URINE RANDOM 108.76 mg/dL (63-166); SODIUM,URINE 59 mmol/L; TOTAL PROTEIN, URINE 197.9 mg/dL (1-14)
[2018-02-24 17:00] LABS: BASOPHILS # (AUTO) 0.1 (0.0-0.1); BASOPHILS % 0.3 % (0.0-1.0); EOSINOPHILS # (AUTO) 0.1 (0.0-0.4); EOSINOPHILS % 0.5 % (0.0-6.0); HEMATOCRIT 33.9 % (38.2-49.6); HEMOGLOBIN 10.8 g/dL (14.0-18.0); MEAN CORPUSCULAR HEMOGLOBIN 28.3 pg (28-32); MEAN CORPUSCULAR HGB CONC 31.9 g/dL (31-35); MEAN CORPUSCULAR VOLUME 88.7 fL (81-99); MONOCYTES # (AUTO) 2.5 (0.2-0.8); MONOCYTES % 10.5 % (4.4-11.3); NEUTROPHILS # (AUTO) 20.1 (2.1-6.9); NEUTROPHILS % 84.2 % (38.7-80.0); PLATELET COUNT 265 x10e3/uL (140-360); RED BLOOD COUNT 3.82 x10e6/uL (4.3-5.7); RED CELL DISTRIBUTION WIDTH 17.8 % (11.7-14.4)
--- NOTE | 2018-02-24 17:07 | Consultation ---
DATE OF CONSULTATION: February 24, 2018 INFECTIOUS DISEASE CONSULTATION REASON FOR CONSULTATION: UTI. HISTORY OF PRESENT ILLNESS: Thank you so much for asking me to see this patient. This is a patient who is an 82-year-old gentleman who has history of bladder cancer diagnosed June 2017, history of hypertension, history of congestive heart failure, previous smoking, recurrent kidney stones, chronic constipation, hypothyroidism, prostate cancer. The patient comes in after a fall. The patient was admitted. The patient in the emergency room had a right hip x-ray, showed a right greater trochanteric perihardware fracture. The patient was admitted. Urine cultures came back positive. The patient is currently lying in bed, confused, does not really provide meaningful information. PAST MEDICAL HISTORY: Bladder cancer diagnosed June 2017, hypertension, coronary artery disease, congestive heart failure, history of smoking, chronic kidney disease, constipation, hypothyroidism, prostate cancer. PAST SURGICAL HISTORY: Right hip surgery, open reduction and internal fixation. AICD placement. Heart catheterization. ALLERGIES: NKA. SOCIAL HISTORY: There is no smoking, drug abuse, alcohol use. He used to be a heavy smoker, but he quit in 1999. He drinks alcohol occasionally. MEDICATION: He is on [place], clonazepam, levothyroxine, Senna. The patient is currently alert and confused, does not seem to be in acute distress. When he first came, apparently he was oriented. LABORATORY DATA: When he first came, his white count was 13.4. It came up gradually, today is 32.9, hemoglobin 11, hematocrit 34. His sodium 137, potassium 3.7, his creatinine 2.14. When he first came, it was 1.65. His albumin of 2.8. His blood cultures, urine cultures still pending. There is no growth from February 21 on the blood cultures or the catheter. PHYSICAL EXAMINATION: GENERAL: He is alert, confused, does not seem to be in acute distress. VITAL SIGNS: Stable, currently afebrile. No fever since admission. HEENT: Normocephalic. NECK: Supple. CHEST: A few crackles. HEART: S1 and S2. No S3, no S4, no murmur. ABDOMEN: Soft. Currently the patient on azithromycin, Rocephin starting February 21. IMPRESSION: 1. Leukocytosis getting progressively worse while on antibiotic. I would suggest to discontinue antibiotic. 2. Concerned about early Clostridium difficile colitis. So far no diarrhea. Clinically stable. 3. Altered mental status. 4. Other possibilities could not be ruled out at this stage. Will see how she is going to do. Recheck CBC. Recheck chem panel. Further recommendations to follow. Job#: [id number]
[2018-02-24 17:23] LABS: LYMPHOCYTES % (MANUAL) 11 % (19-48); MONOCYTES % (MANUAL) 8 % (3.4-9.0); NEUTROPHILS % (MANUAL) 81 % (40-74)
[2018-02-24 17:24] LABS: PLATELET ESTIMATE ADEQUATE; PLATELET MORPHOLOGY COMMENT NORMAL; RBC MORPHOLOGY COMMENT NORMAL
[2018-02-24] MEDS: SODIUM CHLORIDE 0.9% 1000ML 1,000 ML IV SCH (17:40)
--- NOTE | 2018-02-24 21:45 | Consultation ---
DATE OF CONSULTATION: February 24, 2018 RENAL CONSULTATION REASON FOR CONSULTATION: Acute kidney injury. HISTORY OF PRESENT ILLNESS: An 82-year-old male with a history of bladder cancer and congestive heart failure, presented to [facility] on [facility]/21[facility]2018 after suffering a fall. Workup revealed a right greater trochanteric fracture, as well as irregularity in the bladder suspicious for a recurrent tumor. In addition, he was found to have moderate right hydroureteronephrosis, a large mass in his right inferior renal pelvis, as well as findings consistent with metastatic disease. Patient was admitted and urology and orthopedic surgery were consulted. Patient's kidney function worsened and nephrology consultation was called. Patient is unable to give any further history. REVIEW OF SYSTEMS: As above. Otherwise unable to obtain. Significant weight loss and weakness. PAST MEDICAL HISTORY 1. Bladder cancer diagnosed in 2017. 2. Congestive heart failure. 3. History of kidney stones. 4. Chronic constipation. 5. Hypothyroidism. 6. History of prostate cancer. PAST SURGICAL HISTORY 1. Right hip surgery repair of fracture. 2. AICD placement. 3. History of heart catheterization. SOCIAL HISTORY: No alcohol. History of tobacco in the past. FAMILY HISTORY: Noncontributory. ALLERGIES: STATINS. CURRENT MEDICATIONS: See list. PHYSICAL EXAM VITALS: Blood pressure 139/73, pulse 74, respiratory rate 20, temperature 97.1. GENERAL: No apparent distress. HEENT: Oropharynx clear. No scleral icterus. No periorbital edema. NECK: Supple. No elevation in jugular venous pressure. No lymphadenopathy. CHEST: Clear to auscultation anteriorly with decreased breath sounds at the bases. CARDIOVASCULAR: Regular rhythm. No murmurs or rubs appreciated. ABDOMEN: Soft. Positive bowel sounds. No tenderness. No rebound. EXTREMITIES: No edema. No clubbing. No cyanosis. SKIN: Warm. LABS: White count 32,000, hemoglobin 11.3, hematocrit 34.4, platelets 296,000. Sodium 137, potassium 3.7, chloride 103, CO2 23, BUN 26, creatinine 2.14 up from 1.43. Creatinine 10/16/2017 was 0.96, albumin 2.9, calcium 8.9. Urinalysis, 350 WBCs, 1-5 granular casts. Urine culture no growth. IMAGING: CT of abdomen and pelvis shows metastatic disease including liver, spleen, and non-clay metastasis. Kidney shows stable bilateral renal cystic lesions. Air seen in the left renal collecting system, mass-like lesion centered in the right inferior renal kam and pelvis measuring 2.9 cm. Bladder was decompressed. The Meehan catheter was inflated within the prostatic urethra. A retrograde pyelogram done 02/23/2018. ASSESSMENT AND PLAN 1. Acute kidney injury. Suspect secondary to acute tubular necrosis. Patient did receive some IV contrast on 02/21/2018; however, his creatinine was okay until 02/24/2018. We will check urine studies. Continue current antibiotics. Will check urine eosinophils and give gentle IV fluid. Urology is following for the right hydronephrosis. 2. Electrolytes acceptable. 3. Euvolemic to dry on exam, will give gentle IV fluids as above. 4. Leukocytosis. Continue antibiotics. Await for culture and sensitivity. 5. Metastatic cancer. The patient's overall prognosis is poor. 6. Right hip fracture. Orthopedic surgery is following. Job#: [id number] CQ
[2018-02-24] MEDS: CLONAZEPAM 1 MG TAB PO PRN (21:53)
[2018-02-25] VITALS (8 sets, daily range): BP systolic 111–156; BP diastolic 57–94
[2018-02-25 04:47] LABS: BASOPHILS # (AUTO) 0.1 (0.0-0.1); BASOPHILS % 0.5 % (0.0-1.0); EOSINOPHILS # (AUTO) 0.6 (0.0-0.4); EOSINOPHILS % 3.9 % (0.0-6.0); HEMOGLOBIN 10.3 g/dL (14.0-18.0); LYMPHOCYTES # (AUTO) 1.1 (1.0-3.2); LYMPHOCYTES % 6.4 % (18.0-39.1); MEAN CORPUSCULAR HGB CONC 31.2 g/dL (31-35); MEAN CORPUSCULAR VOLUME 89.7 fL (81-99); MONOCYTES # (AUTO) 2.5 (0.2-0.8); MONOCYTES % 14.9 % (4.4-11.3); NEUTROPHILS # (AUTO) 12.1 (2.1-6.9); NEUTROPHILS % 73.9 % (38.7-80.0); PLATELET COUNT 239 x10e3/uL (140-360); RED BLOOD COUNT 3.68 x10e6/uL (4.3-5.7); RED CELL DISTRIBUTION WIDTH 17.7 % (11.7-14.4)
[2018-02-25 05:10] LABS: ANION GAP 13.1 mmol/L (8-16); CALCIUM 8.9 mg/dL (8.4-10.2); CREATININE, SERUM 2.13 mg/dL (0.72-1.25); POTASSIUM 4.1 mmol/L (3.5-5.1)
[2018-02-25] MEDS: LEVOTHYROXINE SODIUM 75 MCG TAB PO SCH (06:50)
[2018-02-25] MEDS: GABAPENTIN 300 MG CAP PO SCH ×3 (08:05→22:21)
[2018-02-25] MEDS: METOCLOPRAMIDE HCL 10 MG TAB PO SCH ×3 (08:05→22:21)
[2018-02-25] MEDS: SERTRALINE HCL 50 MG TAB PO SCH (08:05)
[2018-02-25] MEDS: TAMSULOSIN HCL 0.4 MG CAP PO SCH (08:05)
[2018-02-25] MEDS: PANTOPRAZOLE SOD 40 MG TABEC PO SCH ×2 (08:05→17:09)
[2018-02-25] MEDS: CARVEDILOL 12.5 MG TAB PO SCH (08:05)
[2018-02-25] MEDS: POLYETHYLENE GLYCOL 3350 17 GM PACK PO SCH (08:05)
[2018-02-25] MEDS: MORPHINE SULFATE 2 MG/ML SYR IV PRN ×5 (08:05→22:22)
[2018-02-25 08:06] LABS: EOSINOPHILS % (MANUAL) 7 % (0-7); LYMPHOCYTES % (MANUAL) 6 % (19-48); MONOCYTES % (MANUAL) 10 % (3.4-9.0); NEUTROPHILS % (MANUAL) 77 % (40-74); PLATELET ESTIMATE ADEQUATE; PLATELET MORPHOLOGY COMMENT NORMAL; RBC MORPHOLOGY COMMENT NORMAL
[2018-02-25] MEDS ORDERED: RISPERIDONE 0.5 MG TAB PO PRN (11:15)
--- NOTE | 2018-02-25 14:14 | Progress Note ---
DATE: February 25, 2018 INTERNAL MEDICINE PROGRESS NOTE SUBJECTIVE: An 82-year-old male who had cystoscopy done recently where he was diagnosed with recurrent bladder cancer and bilateral hydronephrosis. Bilateral stents have been placed by Dr. Gonzalez. He remains confused at times. PHYSICAL EXAM: VITAL SIGNS: The blood pressure is 111/58, temperature 98.6, heart rate 64 per minute, respiratory rate 18 per minute, oxygen saturation 93%. HEART: Shows irregularly irregular heart rate. Normal S1 and S2 sounds. LUNGS: Clear bilaterally. ABDOMEN: Soft. EXTREMITIES: Show no evidence of cyanosis, edema or trauma. On the BMP: Sodium 139, potassium 4.1, chloride 106, CO2 24, BUN 35, creatinine 2.13, glucose 106. On the CBC: White blood count 16.4, hemoglobin 10.3, hematocrit 33.0, platelet count 259,000. PT 13.0, INR 1.14, PTT 50.2. AST 15, ALT 9, total bilirubin 0.3, alkaline phosphatase 102. FINAL IMPRESSION: 1. Acute renal failure secondary to acute tubular necrosis. 2. Sepsis. 3. Bladder cancer and prostate cancer with metastases, bilateral hydronephrosis, status post stent placement by Dr. Gonzalez. 4. Anemia of chronic disease. 5. Leukocytosis. 6. Dementia with agitation. 7. Polyneuropathy. PLAN OF TREATMENT: Continue with the current medication regimen which includes: Sodium chloride 50 mL an hour. Morphine 2 mg IV q.3 h. as needed. Zofran 4 mg IV q.4 h. as needed. Clonidine 0.1 mg q.4 h. as needed. Gabapentin 300 mg 3 times a day. Protonix 40 mg twice a day. Tylenol 650 mg q.8 h. as needed. Flomax 0.4 mg daily. Levothyroxine 100 mcg daily. Continue Risperdal 0.25 mg q.6 h. as needed for agitation. He is also on carvedilol 12.5 mg daily. Metoclopramide 10 mg 3 times a day. Zoloft 25 mg daily. Clonazepam 1 mg at bedtime. Zofran 8 mg twice a day as needed for nausea. Haldol 2 mg IV q.6 h. as needed. We are going to continue monitoring BUN, creatinine and electrolytes very carefully. Blood culture is showing a preliminary report of gram positive cocci. Dr. Jack is on the case for infectious diseases. He is holding the IV antibiotic until we get the final report on the blood culture. The prior culture was negative. So far he is afebrile. His white blood count is better. Job#: [id number] EV
[2018-02-25] MEDS: VANCOMYCIN 1GM/NS 250 ML 250 ML IV SCH (14:40)
[2018-02-25] MEDS: SODIUM CHLORIDE 0.9% 1000ML 1,000 ML IV SCH (14:40)
[2018-02-26] VITALS (7 sets, daily range): BP systolic 109–138; BP diastolic 57–71
[2018-02-26] MEDS: MORPHINE SULFATE 2 MG/ML SYR IV PRN ×7 (01:44→23:45)
[2018-02-26 04:31] LABS: BASOPHILS # (AUTO) 0.1 (0.0-0.1); BASOPHILS % 0.5 % (0.0-1.0); EOSINOPHILS % 8.2 % (0.0-6.0); HEMATOCRIT 29.7 % (38.2-49.6); HEMOGLOBIN 9.2 g/dL (14.0-18.0); LYMPHOCYTES # (AUTO) 1.4 (1.0-3.2); LYMPHOCYTES % 11.1 % (18.0-39.1); MEAN CORPUSCULAR HEMOGLOBIN 27.7 pg (28-32); MEAN CORPUSCULAR VOLUME 89.5 fL (81-99); MONOCYTES # (AUTO) 2.3 (0.2-0.8); MONOCYTES % 18.3 % (4.4-11.3); NEUTROPHILS # (AUTO) 7.7 (2.1-6.9); NEUTROPHILS % 61.6 % (38.7-80.0); PLATELET COUNT 214 x10e3/uL (140-360); RED BLOOD COUNT 3.32 x10e6/uL (4.3-5.7); RED CELL DISTRIBUTION WIDTH 17.7 % (11.7-14.4)
[2018-02-26 04:55] LABS: ALBUMIN 2.1 g/dL (3.5-5.0); ALBUMIN/GLOBULIN RATIO 0.6 (0.8-2.0); CALCIUM 8.5 mg/dL (8.4-10.2); CREATININE, SERUM 1.72 mg/dL (0.72-1.25)
[2018-02-26] MEDS: LEVOTHYROXINE SODIUM 75 MCG TAB PO SCH (05:21)
--- NOTE | 2018-02-26 06:39 | Diagnostic Imaging Report ---
CHEST SINGLE (PORTABLE), 02/26/2018 5:00 AM Technique: CHEST SINGLE (PORTABLE) Comparison: 02/21/2018 Clinical history: Congestive heart failure Findings: See Impression Impression: 1. Lines/Tubes: Stable left chest wall pacer, right port at the cavoatrial junction, median sternotomy, CABG markers and mediastinal clips. 2. Stable mildly enlarged cardiomediastinal silhouette with tortuous aorta. 3. Lung apices are obscured. No consolidation or edema. 4. No effusion or pneumothorax. Signed by: Dr Nina Henderson MD on 02/26/2018 6:36 AM
[2018-02-26] MEDS: SODIUM CHLORIDE 0.9% 1000ML 1,000 ML IV SCH (07:54)
[2018-02-26] MEDS: CARVEDILOL 12.5 MG TAB PO SCH (09:23)
[2018-02-26] MEDS: METOCLOPRAMIDE HCL 10 MG TAB PO SCH ×3 (09:23→20:32)
[2018-02-26] MEDS: TAMSULOSIN HCL 0.4 MG CAP PO SCH (09:23)
[2018-02-26] MEDS: SERTRALINE HCL 50 MG TAB PO SCH (09:23)
[2018-02-26] MEDS: GABAPENTIN 300 MG CAP PO SCH ×3 (09:23→20:32)
[2018-02-26] MEDS: POLYETHYLENE GLYCOL 3350 17 GM PACK PO SCH (09:23)
[2018-02-26] MEDS: PANTOPRAZOLE SOD 40 MG TABEC PO SCH ×2 (09:23→16:44)
[2018-02-26] MEDS: AMPICILLIN SOD 1 GM/NS 50ML 50 ML IV SCH ×2 (10:10→16:44)
[2018-02-26] MEDS: VANCOMYCIN 1GM/NS 250 ML 250 ML IV SCH (14:19)
[2018-02-26] MEDS: CLONAZEPAM 1 MG TAB PO PRN (20:32)
[2018-02-27] VITALS (7 sets, daily range): BP systolic 128–151; BP diastolic 67–80
[2018-02-27] MEDS: AMPICILLIN SOD 1 GM/NS 50ML 50 ML IV SCH ×3 (01:30→16:26)
[2018-02-27 04:38] LABS: BASOPHILS # (AUTO) 0.1 (0.0-0.1); BASOPHILS % 0.5 % (0.0-1.0); EOSINOPHILS # (AUTO) 0.9 (0.0-0.4); EOSINOPHILS % 8.9 % (0.0-6.0); HEMATOCRIT 30.4 % (38.2-49.6); HEMOGLOBIN 9.3 g/dL (14.0-18.0); LYMPHOCYTES # (AUTO) 1.3 (1.0-3.2); LYMPHOCYTES % 12.8 % (18.0-39.1); MEAN CORPUSCULAR HGB CONC 30.6 g/dL (31-35); MEAN CORPUSCULAR VOLUME 91.6 fL (81-99); MONOCYTES # (AUTO) 1.4 (0.2-0.8); MONOCYTES % 13.1 % (4.4-11.3); NEUTROPHILS # (AUTO) 6.7 (2.1-6.9); NEUTROPHILS % 64.3 % (38.7-80.0); PLATELET COUNT 246 x10e3/uL (140-360); RED BLOOD COUNT 3.32 x10e6/uL (4.3-5.7); RED CELL DISTRIBUTION WIDTH 17.2 % (11.7-14.4)
[2018-02-27 05:04] LABS: ANION GAP 12.2 mmol/L (8-16); CALCIUM 8.7 mg/dL (8.4-10.2); CREATININE, SERUM 1.3 mg/dL (0.72-1.25); POTASSIUM 4.2 mmol/L (3.5-5.1)
[2018-02-27] MEDS: SODIUM CHLORIDE 0.9% 1000ML 1,000 ML IV SCH (05:32)
[2018-02-27] MEDS: LEVOTHYROXINE SODIUM 75 MCG TAB PO SCH (05:32)
[2018-02-27] MEDS: TAMSULOSIN HCL 0.4 MG CAP PO SCH (08:12)
[2018-02-27] MEDS: POLYETHYLENE GLYCOL 3350 17 GM PACK PO SCH (08:12)
[2018-02-27] MEDS: SERTRALINE HCL 50 MG TAB PO SCH (08:12)
[2018-02-27] MEDS: PANTOPRAZOLE SOD 40 MG TABEC PO SCH ×2 (08:12→16:26)
[2018-02-27] MEDS: GABAPENTIN 300 MG CAP PO SCH ×3 (08:12→20:50)
[2018-02-27] MEDS: METOCLOPRAMIDE HCL 10 MG TAB PO SCH ×3 (08:12→20:50)
[2018-02-27] MEDS: CARVEDILOL 12.5 MG TAB PO SCH (08:13)
[2018-02-27] MEDS: LINEZOLID 600 MG/D5W 300ML 300 ML IV SCH ×2 (10:36→20:50)
[2018-02-27] MEDS: ACETAMINOPHEN 325 MG TAB PO PRN ×2 (11:45→23:27)
[2018-02-27] MEDS: MORPHINE SULFATE 2 MG/ML SYR IV PRN ×4 (12:39→23:57)
--- NOTE | 2018-02-27 16:08 | Diagnostic Imaging Report ---
PROCEDURE: A single AP view of the chest. COMPARISON: Patients [facility], , CHEST SINGLE (PORTABLE), 02/26/2018, 6:07. INDICATIONS: CHF FINDINGS: See impression. IMPRESSION: 1. unchanged right upper chest Port-A-Cath, left upper chest multilead cardiac device, CABG changes and midline sternotomy wires. 2. Cardiac silhouette is stable. Pulmonary vasculature is normal. No consolidation or pulmonary edema. No pleural effusion. 3. No acute bony abnormalities. Piter Joseph M.D. Dictated by: Piter Joseph M.D. on 02/27/2018 at 16:13 Electronically approved by: Piter Joseph M.D. on 02/27/2018 at 16:13
[2018-02-28] VITALS (7 sets, daily range): BP systolic 119–154; BP diastolic 70–86
[2018-02-28] MEDS: AMPICILLIN SOD 1 GM/NS 50ML 50 ML IV SCH ×3 (01:55→17:35)
[2018-02-28 05:16] LABS: BASOPHILS # (AUTO) 0.1 (0.0-0.1); BASOPHILS % 0.5 % (0.0-1.0); EOSINOPHILS # (AUTO) 0.9 (0.0-0.4); HEMATOCRIT 30.6 % (38.2-49.6); HEMOGLOBIN 9.5 g/dL (14.0-18.0); LYMPHOCYTES # (AUTO) 1.6 (1.0-3.2); LYMPHOCYTES % 14.1 % (18.0-39.1); MEAN CORPUSCULAR HEMOGLOBIN 27.9 pg (28-32); MEAN CORPUSCULAR VOLUME 89.7 fL (81-99); MONOCYTES # (AUTO) 1.4 (0.2-0.8); MONOCYTES % 12.4 % (4.4-11.3); NEUTROPHILS # (AUTO) 7.1 (2.1-6.9); NEUTROPHILS % 63.6 % (38.7-80.0); PLATELET COUNT 276 x10e3/uL (140-360); RED BLOOD COUNT 3.41 x10e6/uL (4.3-5.7); RED CELL DISTRIBUTION WIDTH 16.8 % (11.7-14.4)
[2018-02-28] MEDS: LEVOTHYROXINE SODIUM 75 MCG TAB PO SCH (05:19)
[2018-02-28 05:44] LABS: ALBUMIN 2.1 g/dL (3.5-5.0); ALBUMIN/GLOBULIN RATIO 0.6 (0.8-2.0); ANION GAP 13.2 mmol/L (8-16); CALCIUM 8.9 mg/dL (8.4-10.2); CREATININE, SERUM 1.38 mg/dL (0.72-1.25); POTASSIUM 4.2 mmol/L (3.5-5.1)
[2018-02-28] MEDS ORDERED: BISACODYL 10 MG SUPP PR ONE (08:30)
[2018-02-28] MEDS ORDERED: BISACODYL 10 MG SUPP PR PRN (08:30)
[2018-02-28] MEDS: LINEZOLID 600 MG/D5W 300ML 300 ML IV SCH (09:14)
[2018-02-28] MEDS: GABAPENTIN 300 MG CAP PO SCH ×3 (09:15→20:32)
[2018-02-28] MEDS: POLYETHYLENE GLYCOL 3350 17 GM PACK PO SCH (09:15)
[2018-02-28] MEDS: PANTOPRAZOLE SOD 40 MG TABEC PO SCH ×2 (09:15→17:35)
[2018-02-28] MEDS: TAMSULOSIN HCL 0.4 MG CAP PO SCH (09:15)
[2018-02-28] MEDS: METOCLOPRAMIDE HCL 10 MG TAB PO SCH ×3 (09:15→20:32)
[2018-02-28] MEDS: SERTRALINE HCL 50 MG TAB PO SCH (09:15)
[2018-02-28] MEDS: CARVEDILOL 12.5 MG TAB PO SCH (09:15)
[2018-02-28] MEDS: HYDROMORPHONE 1MG/1ML INJ IV PRN ×3 (09:16→17:35)
--- NOTE | 2018-02-28 15:11 | Consultation ---
DATE OF CONSULTATION: February 28, 2018 CARDIOLOGY CONSULTATION REASON FOR CONSULTATION: Ischemic cardiomyopathy, CAD and heart failure. CHIEF COMPLAINT: I fell and I feel weak. HISTORY OF PRESENT ILLNESS: This is an 82-year-old man with long history of bladder cancer now metastatic, history of coronary artery disease status post CABG several years ago and resulting ischemic cardiomyopathy with EF less than 35% status post ICD placement, who presented to the hospital on 02/21/2018 after suffering a fall. Workup revealed a right greater trochanteric fracture as well as irregularity in the bladder suspicious for recurrent tumor. Further workup revealed moderate right hydronephrosis and a large mass in right renal pelvis as well as findings consistent with metastatic disease to the liver and other organs. At this point the patient is very ill, and we are consulted to assess his long-term prognosis from a cardiovascular standpoint. REVIEW OF SYSTEMS: A 10 point review of systems was performed, and patient reports pain in his right hip that is controlled with pain medicine, constipation and some abdominal pain as well as some shortness of breath and lower extremity edema. Denies any orthopnea or PND. PAST MEDICAL HISTORY: 1. Bladder cancer, metastatic. 2. Coronary artery disease status post CABG. 3. Ischemic cardiomyopathy with EF less than 35%. 4. Chronic systolic and diastolic heart failure. 5. Chronic constipation. 6. Hypothyroidism. 7. History of prostate cancer. SOCIAL HISTORY: He denies any alcohol, tobacco or drug use. Used to be a smoker. FAMILY HISTORY: No history of early CAD or sudden cardiac . PHYSICAL EXAMINATION: VITALS: Temperature 98.1, pulse 86, respiratory rate 18, blood pressure 141/79. EYES: Conjunctivae clear but pale. EARS, NOSE, MOUTH AND THROAT: Normal mucosa, no pallor or bleeding. NECK: JVD up to 12 cm. MSK: Normal muscle tone. Generalized weakness. EXTREMITIES: No clubbing or cyanosis. SKIN: No venous stasis changes or ulcers. GENERAL: A frail elderly white man in mild distress. CARDIOVASCULAR: PMI is displaced and sustained. Normal S1 and S2. No murmurs, rubs or gallops. Palpable carotid pulses. Palpable radial pulses. Palpable femoral pulses. Palpable pedal pulses. One plus lower extremity edema to the ankles. Some mild varicosities bilateral lower extremities. RESPIRATORY: Mild respiratory distress. Poor respiratory effort. Lungs are clear to auscultation bilaterally. ABDOMEN: Soft. Mildly tender diffusely. No rebound or guarding. No masses. NEURO AND PSYCH: Alert and oriented to person and place, not time. Normal affect. MEDICATIONS: His current inpatient medications as well as outpatient medication regimen were reviewed. LABORATORY DATA: Reviewed. Notable for a white count of 11, hemoglobin of 9.5, platelet count of 276. Creatinine of 1.4 and urine consistent with hematuria. IMAGING DATA: Reviewed. ASSESSMENT: 1. Coronary artery disease, status post coronary artery bypass graft. 2. Ischemic cardiomyopathy, status post implantable cardioverter-defibrillator placement. 3. Chronic systolic and diastolic heart failure. 4. Metastatic bladder cancer. 5. Right hip fracture. 6. Acute kidney injury. 7. Hypertension. 8. Malnutrition. PLAN: From a cardiovascular standpoint given all of patient's above comorbidities, long-term prognosis is poor. Reasonable to consider discussions regarding hospice placement at this point. From a cardiovascular standpoint, patient's life expectancy is likely, in my opinion, less than a year given his cardiac conditions and other ongoing medical problems. Continue his current cardiovascular medical regimen. At this time, no further tests or procedures planned from a cardiovascular standpoint. Will continue to follow closely. Thank you for this consult. Job#: [id number] FREDRICK
[2018-02-28] MEDS: CLONAZEPAM 1 MG TAB PO PRN (20:51)
--- NOTE | 2018-03-07 10:54 | Discharge Summary ---
ADMIT DIAGNOSES 1. Right femoral neck fracture secondary to mechanical fall. 2. Bladder cancer with likely liver, clay and splenic metastases. 3. New right-sided renal mass likely related to the patient's metastatic bladder cancer. 4. Acute renal failure. 5. Urinary tract infection. 6. Chronic systolic/diastolic congestive heart failure. 7. Anemia secondary to chronic disease. DISCHARGE DIAGNOSES 1. Sepsis secondary to Enterococcus faecalis bacteremia. 2. Enterococcus faecalis urinary tract infection. 3. Acute renal failure, resolving. 4. Chronic systolic/diastolic congestive heart failure. 5. Bladder cancer with likely liver, lymph node and splenic metastases. 6. Right-sided renal mass likely related to the patient's metastatic bladder cancer. 7. Status post cystoscopy with right ureteral stent placement. 8. Status post Meehan catheter placement under general anesthesia. 9. Right femoral neck fracture. HOSPITAL COURSE: This is an 82-year-old white man who was initially admitted to [facility] with the diagnosis of right femoral neck fracture secondary to mechanical fall and acute renal failure. During this hospitalization, the patient was also found to have Enterococcus faecalis sepsis with urine and blood cultures that grew Enterococcus faecalis bacterial species. The patient underwent a CT of the abdomen and pelvis without contrast on admission that revealed a minimally displaced right greater trochanteric fracture, as well as irregular bladder wall thickening suspicious for recurrent tumor. The CT of the abdomen and pelvis also revealed increasingly right moderate hydroureteronephrosis, as well as possible metastatic disease, including the liver, splenic and clay metastases. The patient was also found to have a mass-like lesion in the right kidney. The urologist, namely Dr. Gonzalez, performed cystoscopy during this hospitalization, and placed a right ureteral stent, as well as a Meehan catheter under general anesthesia. The patient's kidney function did improve during his hospitalization. On admission, the patient's BUN and creatinine got as high as 35 and 2.13 respectively. On the day of discharge, the patient's BUN and creatinine was 17 and 1.38 respectively. As previously stated, the patient was found to have urine and blood cultures that grew Enterococcus faecalis bacterial species. The patient's urologist, namely Dr. Errol Gonzalez, stated that he was not convinced that this was metastatic bladder cancer since CT of the abdomen and pelvis was not performed with intravenous contrast. The decision was made to transfer the patient to a long-term acute care facility, namely [facility], where he could receive continued intravenous antibiotic therapy. Also, the patient's white blood cell count during this hospitalization did get as high as 32,900 with 83% segmented neutrophils. On the day of discharge, the patient's white blood cell count was 11,000 with 63% segmented neutrophils. DISCHARGE MEDICATIONS 1. Clonazepam 1 mg at bedtime p.r.n. insomnia. 2. Metoclopramide 10 mg b.i.d. 3. Gabapentin 300 mg t.i.d. 4. Hydromorphone 0.5 mg intravenously every 4 hours p.r.n. pain. 5. Ampicillin 1 g intravenous every 8 hours. 6. Pantoprazole 40 mg p.o. b.i.d. 7. Carvedilol 12.5 mg p.o. daily. 8. Sertraline 25 mg daily. 9. MiraLAX 17 g once daily. 10. Tamsulosin 0.4 mg once daily. 11. Bisacodyl 10 mg once per rectum daily as needed for constipation. 12. Linezolid 600 mg intravenously every 12 hours. 13. Levothyroxine 150 mcg daily. 14. Morphine sulfate 2 mg intravenously every 3 hours p.r.n. pain. 15. Acetaminophen 650 mg p.o. q.8 h. as needed for pain or fever. FOLLOWUP INSTRUCTIONS: The patient was transferred to a long-term acute care facility, namely [facility], to be under the care of his attending there, Dr. Eliazar Ceballos. I did speak at length with the family concerning end of life issues. The family stated that they were receptive to palliative treatment in the form of Hospice care. The patient was not deemed a surgical candidate in regards to repairing his right hip fracture. LOUISE GALEANO MD Job#: [id number] MARY CARDOZO
--- NOTE | 2018-04-24 01:35 | Operative Report ---
DATE OF PROCEDURE: PREOPERATIVE DIAGNOSES 1. Gross hematuria. 2. Urinary tract infections. POSTOPERATIVE DIAGNOSES 1. Gross hematuria. 2. Urinary tract infections. 3. Urethral stricture disease. OPERATIONS PERFORMED 1. Cystourethroscopy with bilateral ureteral catheterization and retrograde ureteropyelography and insertion of bilateral indwelling ureteral stents (separate procedure performed for the gross hematuria and urinary tract infections). 2. Interpretation of retrograde ureteropyelography. 3. Cystourethroscopy with calibration and dilation of urethral stricture (separate procedure performed for the diagnosis of stricture). 4. Interpretation of cystography. ANESTHESIA: General. COMPLICATIONS: None. CLINICAL SUMMARY: Melecio Browne is a complicated 82-year-old man with bladder cancer. He is believed to have recurrent bladder cancer. He underwent a complicated urethral catheterization following urethral injury. He is brought to the operating room to evaluate and manage his hematuria and urinary tract infections, as well as evaluate for any recurrent cancer. Family is aware of the risks of bleeding, infection, injury to adjacent structures, and elected to proceed. OPERATIVE PROCEDURE IN DETAIL: Informed consent was verified. Melecio Browne was properly identified, taken to operating room, placed on the cystoscopy table in supine position. Anesthesia was uneventfully begun. The patient was then carefully and gently repositioned in the dorsal lithotomy position with all pressure points well padded. His genitalia were prepared and draped in usual sterile fashion. The 22.5-Greek cystoscope sheath with the visual obturator in place was atraumatically inserted into the patient's distal urethra. The distal urethra was unremarkable at the bulbar region. There was fairly tight bulbar urethral stricture that I believe is clinically significant and may be the source of his urethral trauma. Just distal to this urethral stricture, there was sign of urethral trauma, most likely from the catheterization attempts. We dilated across this bulbar urethral stricture and went through the patient's prostate bed into the patient's bladder, where we identified recurrent bladder cancer mostly along the posterior and right lateral wall. This was a very large tumor. This tumor also appeared to be very friable, as well as had the appearance of being high-grade, as well as invasive. Both ureters were cannulated, retrograde pyelograms were performed, and bilateral stents were placed. Stents were coiled in the patient's kidney, as well as the patient's bladder. Interpretation of retrograde ureterography: Contrast was instilled in retrograde fashion bilaterally. There was bilateral hydronephrosis. There was bilateral ureteral tortuosity. The obstruction appeared to be at the level of the patient's bladder. A Meehan catheter was then placed. A contrast was injected performing cystography. Interpretation of cystography: Contrast was injected in retrograde fashion via the Meehan catheter. The Meehan catheter balloon was in the bladder. The prostate bed was wide open and the Meehan catheter balloon easily falls into this wide-open prostate bed. The patient's bladder is extremely small and barely accommodate the catheter. The patient's anatomy is as such as patient has hydroureteronephrosis with bilateral indwelling stents. His bladder is extremely small most likely from being heavily trabeculated, as well as a result of his prior urological history and surgeries. The prostate bed is wide open and the patient's Meehan catheter balloon easily can fall into the patient's prostate bed even with the balloon overinflated. Patient was then uneventfully reversed from anesthesia and taken to recovery room in stable condition. There were no complications to the procedure. He tolerated the procedure well. Plans will include away the patient to get medically optimized and then returning to the operating room for palliative transurethral resection of his bladder cancer that is recurrent. I do not believe the patient with his current medical status would do well with major surgery such as radical cystectomy. This was especially in light of his prior urological history. Job#: [id number] CQ
--- OUTSIDE RECORDS SUMMARY | 2018-04-25 22:37 | XMS REPORT | Clinical Summary ---
Author Author [facility]IEL [facility] Address Unknown Phone Unavailable Care Team Providers Care Newspaper Delivery Driver Name Role Phone PCP Unavailable Allergies Active Allergy Reactions Severity Noted Date Comments Zhsqztx-Wsk-Nex Reductase 07/07/2017 Inhibitors Simvastatin Rash Low 07/08/2017 Current Medications Prescription Sig. Disp. Refills Start End Date Status Date HYDROcodone-acetaminophen Take 1 tablet by mouth Active (NORCO 5-325) 5-325 mg every 6 (six) hours as per tablet needed for Pain. traMADol (ULTRAM) 50 mg Take 50 mg by mouth every Active tablet 8 (eight) hours as needed for Pain . carvedilol (COREG) 25 MG Take 12.5 mg by mouth Active tablet every 12 (twelve) hours . verapamil (CALAN) 40 MG Take 10 mg by mouth Active tablet daily. sertraline (ZOLOFT) 25 MG Take 25 mg by mouth Active tablet daily. clonazePAM (KLONOPIN) 0.5 Take 0.5 mg by mouth Active MG tablet every night as needed for Anxiety. gabapentin (NEURONTIN) Take 150 mg by mouth 2 Active 300 MG capsule (two) times daily. furosemide (LASIX) 40 MG Take 40 mg by mouth Active tablet daily. levothyroxine (SYNTHROID, Take 150 mcg by mouth Active LEVOTHROID) 150 MCG Every morning on an empty tablet stomach. polyethylene glycol Take 17 g by mouth daily. Active (GLYCOLAX) 17 gram packet oxybutynin (DITROPAN XL) Take 15 mg by mouth Active 15 MG 24 hr tablet daily. guaiFENesin (MUCINEX) 600 Take 1,200 mg by mouth 3 Active mg 12 hr tablet (three) times daily as needed for Congestion. ondansetron (ZOFRAN) 4 MG Inject 4 mg intravenously Active tablet every 4 (four) hours as needed for Nausea. tamsulosin (FLOMAX) 0.4 Take 0.4 mg by mouth Active mg Cp24 24 hr capsule daily. sucralfate (CARAFATE) 1 Take 1 g by mouth 3 Active gram tablet (three) times daily. metoclopramide HCl Take 10 mg by mouth 2 Active (REGLAN) 10 MG tablet (two) times daily. pantoprazole (PROTONIX) Take 40 mg by mouth 2 Active 40 MG tablet (two) times daily. ramipril (ALTACE) 2.5 MG Take 2.5 mg by mouth Active capsule daily. dicyclomine (BENTYL) 10 Take 10 mg by mouth 3 Active MG capsule (three) times daily. atorvastatin (LIPITOR) 40 Take 40 mg by mouth Active MG tablet daily. belladonna-opium (B&O Place 60 mg rectally 07/10/20 Discontin SUPPRETTES) 16.2-60 MG every 6 (six) hours as 17 ued suppository needed for Pain. meloxicam (MOBIC) 15 MG Take 15 mg by mouth 07/10/20 Discontin tablet daily. 17 ued bisacodyl (DULCOLAX) 10 Place 1 suppository (10 12 0 07/10/20 mg suppository mg total) rectally daily suppository 17 17 as needed for up to 10 days. bisacodyl (DULCOLAX) 5 mg Take 1 tablet (5 mg 30 tablet 0 07/10/20 08/09/19 EC tablet total) by mouth daily as 17 18 needed for Constipation for up to 30 days. docusate sodium (COLACE) Take 1 capsule (100 mg 10 capsule 0 07/11/20 07/21/20 100 MG capsule total) by mouth daily for 17 17 10 days. Active Problems Problem Noted Date Leukocytosis 07/10/2017 Coronary artery disease 07/10/2017 Atrial fibrillation (HCC) 07/10/2017 Cystitis 07/10/2017 JOSE (acute kidney injury) (HCC) 07/10/2017 Diastolic CHF, chronic (HCC) 07/10/2017 Hypothyroidism 07/10/2017 Hypertension 07/10/2017 Constipation 07/10/2017 Physical deconditioning 07/10/2017 MDD (major depressive disorder) 07/10/2017 Anxiety 07/10/2017 Bladder cancer (HCC) 07/08/2017 Encounters Date Type Specialty Care Team Description 07/08/2017 Anesthesia Yovani Marvin MD Event 07/08/2017 Procedure Pass 07/08/2017 Surgery Errol Gonzalez MD CYSTOSCOPY,TURBT 07/07/2017 [facility] General Internal Medicine Jessee Guzman MD Malignant neoplasm of - Encounter Tesfaye Jarquin, lateral wall of urinary 07/10/2017 MD bladder ([facility]);Coronary Mariana Baca MD artery disease involving Nilesh Tiwari, [place] heart with angina MD pectoris, unspecified vessel or lesion type ([facility]);Congestive heart failure, unspecified congestive heart failure chronicity, unspecified congestive heart failure type ([facility]);Hypertension, unspecified type;Type 2 diabetes mellitus with complication, unspecified termite exterminator helper insulin use status ([facility]) after 02/19/2017 Social History Tobacco Use Types Packs/Day Years Used Date Former Smoker 1 Quit: 2000 Alcohol Use Drinks/Week oz/Week Comments Yes 7 Shots of 4.2 1 shot of whiskey nightly liquor Sex Assigned at Date Recorded Not on file Last Filed Vital Signs Vital Sign Reading Time Taken Blood Pressure 119/64 07/10/2017 3:12 PM RIB CLOTH KNITTER Pulse 65 07/10/2017 3:12 PM [employer] K[employer] Temperature 35.9 C (96.6 F) 07/10/2017 3:12 PM [employer] KNITTER Respiratory Rate 18 07/10/2017 3:12 PM [employer] KNIT[employer] Oxygen Saturation 96% 07/10/2017 3:12 PM [employer] KNITTER Inhaled Oxygen - - Concentration Weight 108 kg (238 lb) 07/07/2017 11:36 PM [employer] KNITTER Height 195.6 cm (6' 5") 07/07/2017 11:36 PM [employer] K[employer]IT[employer] Body Mass Index 28.22 07/07/2017 11:36 PM [employer] KNITTER Plan of Treatment Not on file Procedures Procedure Name Priority Date/Time Associated Diagnosis Comments CYSTOSCOPY,TURBT 07/08/2017 Bladder tumor 9:40 AM R[employer] KNITTER after 02/19/2017 Results * RHYTHM STRIP - SCAN (07/12/2017 10:00 AM) * CBC (Hemogram only) (07/10/2017 5:50 AM) Only the most recent of 2 results within the time period is included. Component Value Ref Range WBC 12.3 (H) 3.5 - 10.5 K/ L RBC 3.88 (L) 4.63 - 6.08 M/ L Hemoglobin 11.8 (L) 13.7 - 17.5 GM/DL Hematocrit 38.1 (L) 40.1 - 51.0 % MCV 98.2 (H) 79.0 - 92.2 fL MCH 30.4 25.7 - 32.2 pg MCHC 31.0 (L) 32.3 - 36.5 GM/DL RDW 14.8 (H) 11.6 - 14.4 % Platelets 273 150 - 450 K/CU MM MPV 10.5 9.4 - 12.4 fL nRBC 0 0 - 0 /100 WBC Specimen Performing Laboratory Blood - Arm, [address] [address] * Basic Metabolic Panel (07/10/2017 5:50 AM) Only the most recent of 3 results within the time period is included. Component Value Ref Range Sodium 136 136 - 145 meq/L Potassium 4.1 3.5 - 5.1 meq/L Chloride 107 98 - 107 meq/L CO2 21 (L) 22 - 29 meq/L BUN 26 (H) 7 - 21 mg/dL Creatinine 1.06 0.57 - 1.25 mg/dL Glucose 102 70 - 105 mg/dL Calcium 8.5 8.4 - 10.2 mg/dL EGFR 67Comment: ESTIMATED GFR IS NOT ACCURATE mL/min/1.73 sq m CREATININE CLEARANCE IN PREDICTING GLOMERULAR FILTRATION RATE. ESTIMATED GFR IS NOT APPLICABLE FOR DIALYSIS PATIENTS. Specimen Performing Laboratory Blood - [place], [place] [address] * Tissue Exam (07/08/2017 11:43 AM) Component Value Ref Range Case Report Surgical Pathology Report Case: [id number] Authorizing Provider: Errol Gonzalez MD Collected: 07/08/2017 1143 Ordering Location: [address] Received: 07/10/2017 0857 Service Pathologist: Jimbo Cabrera MD Specimens: A) - Soft Tissue, Other, right lateral wall B) - Soft Tissue, Other, posterior wall DIAGNOSIS A. URINARY BLADDER, RIGHT LATERAL WALL, TRANSURETHRAL RESECTION: - PAPILLARY UROTHELIAL CARCINOMA, HIGH GRADE (WHO GRADE 3), INVASIVE INTO MUSCULARIS PROPRIA - NEGATIVE FOR LYMPH/VASCULAR INVASION B. URINARY BLADDER, POTERIOR WALL, TRANSURETHRAL RESECTION: - FREE-FLOATING FRAGMENTS OF UROTHELIAL CARCINOMA, HIGH GRADE, IN BLOOD AND FIBRIN Signing Pathologist Direct Phone Line: [phone] CPT Code(s) 23087 x 2. CLINICAL HISTORY Bladder tumor SPECIMEN SOURCE A. Right lateral wall. B. Posterior wall GROSS DESCRIPTION Specimen A: Received in formalin labeled "soft tissue, other", description "right lateral wall" is a 2.5 x 2.2 x 0.3 cm aggregate of pink-witt to espinoza-white, rubbery, cauterized, soft tissue. The specimen is entirely submitted in cassettes A1-A2. Specimen B: Received in formalin labeled "soft tissue, other", description "posterior wall" are two fragments measuring 0.5 cm and 0.8 cm in greatest dimension. The specimen is entirely submitted in B1. DB/ew MICROSCOPIC DESCRIPTION Performed Specimen Performing Laboratory Tissue - Soft Tissue, [facility] Other [address] [place] [id number] * CBC with platelet count + automated diff (07/08/2017 5:11 AM) Component Value Ref Range WBC 12.8 (H) 3.5 - 10.5 K/ L RBC 4.23 (L) 4.63 - 6.08 M/ L Hemoglobin 13.0 (L) 13.7 - 17.5 GM/DL Hematocrit 41.8 40.1 - 51.0 % MCV 98.8 (H) 79.0 - 92.2 fL MCH 30.7 25.7 - 32.2 pg MCHC 31.1 (L) 32.3 - 36.5 GM/DL RDW 14.7 (H) 11.6 - 14.4 % Platelets 273 150 - 450 K/CU MM MPV 10.5 9.4 - 12.4 fL nRBC 0 0 - 0 /100 WBC % Neutros 65 % % Lymphs 15 % % Monos 15 % % Eos 5 % % Baso 0 % # Neutros 8.30 (H) 1.78 - 5.38 K/ L # Lymphs 1.92 1.32 - 3.57 K/ L # Monos 1.90 (H) 0.30 - 0.82 K/ L # Eos 0.58 (H) 0.04 - 0.54 K/ L # Baso 0.05 0.01 - 0.08 K/ L Immature 0 0 - 1 % Granulocytes-Relative Specimen Performing Laboratory Blood - Arm, Right [facility] [address] [place] [address] * CBC with platelet count + automated diff (07/08/2017 5:11 AM) Specimen Performing Laboratory Blood Narrative The following orders were created for panel order CBC with platelet count + automated diff. Procedure Abnormality Status --------- - ------ CBC with platelet count ...[[id number]]AbnormalFinal result Please view results for these tests on the individual orders. after 02/19/2017
--- OUTSIDE RECORDS SUMMARY | 2018-04-25 22:37 | XMS REPORT | Clinical Summary ---
Author Author [facility]IEL [facility] Address Unknown Phone Unavailable Care Team Providers Care Signal Apprentice Name Role Phone PCP Unavailable Allergies Active Allergy Reactions Severity Noted Date Comments Rgqvsuo-Mrm-Img Reductase 07/07/2017 Inhibitors Simvastatin Rash Low 07/08/2017 [...] 07/08/2017 Surgery Errol Gonzalez MD CYSTOSCOPY,TURBT 07/07/2017 [facility] General Internal Medicine Jessee Guzman MD Malignant neoplasm of - Encounter Tesfaye Jarquin, lateral wall of urinary 07/10/2017 MD bladder ([facility]);Coronary Mariana Baca MD artery disease involving Nilesh Tiwari, [place] heart with angina MD pectoris, unspecified vessel or lesion type (HCC);Congestive heart failure, unspecified congestive heart failure chronicity, unspecified congestive heart failure type ([facility]);Hypertension, unspecified type;Type 2 diabetes mellitus with complication, unspecified terminal gauger supervisor insulin use status ([facility]) after 02/20/2017 Social History Tobacco Use Types Packs/Day Years Used Date Former Smoker 1 Quit: 2000 Alcohol Use Drinks/Week oz/Week Comments Yes 7 Shots of 4.2 1 shot of whiskey nightly liquor Sex Assigned at Date Recorded Not on file Last Filed Vital Signs Vital Sign Reading Time Taken Blood Pressure 119/64 07/10/2017 3:12 PM GREIGE MENDER Pulse 65 07/10/2017 3:12 PM GREIGE MENDER Temperature 35.9 C (96.6 F) 07/10/2017 3:12 PM GREIGE MENDER Respiratory Rate 18 07/10/2017 3:12 PM GREIGE MENDER Oxygen Saturation 96% 07/10/2017 3:12 PM GREIGE MENDER Inhaled Oxygen - - Concentration Weight 108 kg (238 lb) 07/07/2017 11:36 PM GREIGE MENDER Height 195.6 cm (6' 5") 07/07/2017 11:36 PM GREIGE MENDER Body Mass Index 28.22 07/07/2017 11:36 PM GREIGE MENDER Plan of Treatment Not on file Procedures Procedure Name Priority Date/Time Associated Diagnosis Comments CYSTOSCOPY,TURBT 07/08/2017 Bladder tumor 9:40 AM GREIGE MENDER after 02/20/2017 Results * RHYTHM STRIP - SCAN (07/12/2017 [...] WBC Specimen Performing Laboratory Blood - Arm, [address] [address] * Basic Metabolic Panel (07/10/2017 5:50 AM) [...] PATIENTS. Specimen Performing Laboratory Blood - Arm, [place] [address] * Tissue Exam (07/08/2017 11:43 AM) Component Value Ref Range Case Report Surgical Pathology Report Case: [id number] Authorizing Provider: Errol Gonzalez MD Collected: 07/08/2017 1143 Ordering Location: [address] Received: 07/10/2017 0857 Service Pathologist: Jimbo [...] AND FIBRIN Signing Pathologist Direct Phone Line: [phone] CPT Code(s) 57846 x 2. CLINICAL HISTORY Bladder tumor SPECIMEN [...] Specimen Performing Laboratory Tissue - Soft Tissue, [facility] Other [address] [place] [id number] * CBC with platelet count + automated [...] Performing Laboratory Blood - Arm, Right [facility] [address] [place] [address] * CBC with platelet count + automated diff (07/08/2017 5:11 AM) Specimen Performing Laboratory Blood Narrative The following orders were created for panel order CBC with platelet count + automated diff. Procedure Abnormality Status --------- - ------ CBC with platelet count ...[[id number]]AbnormalFinal result Please view results for these tests on the individual orders. after 02/20/2017
--- OUTSIDE RECORDS SUMMARY | 2018-04-25 22:37 | XMS REPORT | Continuity of Care Document ---
Author Author [facility] Organization [facility] Address [address] [address] Phone Unavailable Care Team Providers Care Executive Asst Name Role Phone CLEMENT OCONNOR MD PCP Insurance Providers Guarantor Rene Wills Address [address] [place] [address] Email [email or web address] [email or web address] Medicare A & B Policy Number [id number] Subscriber's Name PavanRene Relationship 18 Self / Same As Patient Group Name RETIRED Effective Date 89 Advance Directives Directive Response Recorded Date/Time Does the patient have an advance directive? No 10/11/17 12:44am If yes, is advance directive on file with [facility]? No 10/11/17 12:44am If not on file with [facility] will patient provide a copy? No 10/11/17 12:44am Do you have a Directive to Physician? No 10/10/17 5:52pm Do you have a Medical Power of Clinical Research Assistant? No 10/10/17 5:52pm Do you have an out of hospital Do Not Resuscitate Order? No 10/10/17 5:52pm Do you have any special needs we should be aware of? No 10/10/17 5:52pm Do you have a support person here with you today? Yes 10/10/17 5:52pm Did patient receive Notice of Privacy Practices? Yes 10/10/17 5:52pm Did patient receive patient rights and responsibilities? Yes 10/10/17 5:52pm Problems Medical Problem Onset Date Status Chest discomfort 04/20/2014 Acute Chest pain 04/20/2014 Acute Chest pain Unknown Diverticulitis 05/05/2014 Acute Essential hypertension 04/20/2014 Acute Tight chest 04/20/2014 Acute UTI (urinary tract infection) Unknown Medications Current Home Medications Medication Dose Units Route Directions Days Qty Instructions Start Date Acetaminophen/Hydrocodone Bitart (Archer 10MG-325MG*) 1 Ea Tab 1 Tab Oral Every 6 Hours as needed for Pain Carvedilol (Coreg) 12.5 Mg Tab 12.5 Mg Oral Every 12 Hours Clonazepam 1 Mg Tablet 0.5 Mg Oral Bedtime Furosemide (Lasix) 40 Mg Tablet 40 Mg Oral Daily 30 Tab Levothyroxine Sodium 50 Mcg Tablet 150 Mcg Oral Daily 30 Tab Mu-Vits-Min Th/Lycopene/Lutein (Centrum Silver Tablet) 1 Each Tablet 1 Tab Oral Daily Polyethylene Glycol 3350 (Miralax) 17 Gm Powd.pack 1 Packet Oral Daily Senna Fruit/Conc/Doc Sod/Bisa (Senna-S Tablet) 1 Ea Tab 1 Each Oral Daily Tramadol Hcl (Ultram) 50 Mg Tablet 50 Mg Oral Every 8 Hours Past Home Medications Medication Directions Ordered Status Amoxicillin/Potassium Clav (Augmentin 875-125 Tablet) 1 Each Tablet, 875 Mg Oral Twice A Day Discontinued Aspirin (Aspirin Ec) 81 Mg Tablet.dr, 81 Mg Oral Daily Discontinued Atorvastatin Calcium (Lipitor) 20 Mg Tablet, 80 Mg Oral Bedtime Discontinued Bp Med , Oral Daily Discontinued Chlorhexidine Gluconate 118 Ml Liquid, Topically Daily Discontinued Clopidogrel Bisulfate (Plavix) 75 Mg Tablet, 75 Mg Oral Daily Discontinued Diphenhydramine Hcl (Benadryl) 25 Mg Capsule, 25 Mg Oral As Needed for Itching Discontinued Lactulose 20 Gm/30 Ml Solution, 30 Ml Oral As Needed Discontinued Levothyroxine 150 Mcg , 150 Mcg Oral Daily Discontinued Lorazepam 0.5 Mg Tablet, 0.5 Mg Oral Bedtime Discontinued Metronidazole (Flagyl) 250 Mg Tablet, Oral Three Times A Day Discontinued Mupirocin (Bactroban) 15 Gm Cr, 2 % Topically Daily Discontinued Ondansetron Hcl (Zofran*) 4 Mg Tablet, 4 Mg Oral As Needed Discontinued Ramipril 5 Mg Capsule, 5 Mg Oral Daily Discontinued Sodium Chloride (Saline Nasal [place]) 45 Ml [place], 45 Ml Nasal As Needed Discontinued Social History Social History Problem Response Recorded Date/Time Onset Date Status Hx Psychiatric Problems No 10/11/2017 12:44am Not Applicable Not Applicable Hx Eating Disorder No 10/11/2017 12:44am Not Applicable Not Applicable Hx Substance Use Disorder No 10/11/2017 12:44am Not Applicable Not Applicable Hx Depression No 10/11/2017 12:44am Not Applicable Not Applicable Hx Alcohol Use No 10/11/2017 12:44am Not Applicable Not Applicable Hx Substance Use Treatment No 10/11/2017 12:44am Not Applicable Not Applicable Hx Physical Abuse No 10/11/2017 12:44am Not Applicable Not Applicable Smoking Status Start Date Stop Date Former smoker Hospital Discharge Instructions No hospital discharge instruction information available. Plan of Care Discharge Date 10/16/17 6:09pm Disposition TRANSFER LONGTERM Prescriptions See Medication Section Functional Status Query Response Date Recorded FUNCTIONAL STATUS . October 12, 2017 3:47pm Assistive Devices Rolling Walker October 11, 2017 12:56am Ambulation Ability Minimum Assistance October 11, 2017 12:56am Toileting Ability Minimum Assistance October 15, 2017 6:26pm Allergies, Adverse Reactions, Alerts Allergen Type Severity Reaction Status Last Updated Kinvznm-Aax-Kbq Reductase Inhibitor Allergy Unknown Active 10/10/17 Simvastatin Allergy Intermediate Active 10/10/17 Immunizations No immunization information available. Vital Signs Acute Vital Signs Vital Response Date/Time Temperature (Fahrenheit) 98.3 degrees F (97.6 - 99.5) 10/16/2017 4:29pm Pulse Pulse Rate (adult) 66 bpm (60 - 90) 10/16/2017 4:29pm Respiratory Rate 18 bpm (12 - 24) 10/16/2017 4:29pm Blood Pressure 141/64 mm Hg 10/16/2017 4:29pm Height 6 ft 7 in 10/11/2017 12:44am Weight 231.25 lb 10/12/2017 12:05am Body Mass Index 26.1 kg/m^2 10/12/2017 12:05am Results Laboratory Results Test Name Result Units Flags Reference Collection Date/Time Result Date/ Time Comments Urine Mucus FEW H RARE 07/03/2017 8:54am 07/03/2017 10:27am Urine Yeast FEW H NONE 07/03/2017 8:54am 07/03/2017 10:27am White Blood Count 12.99 x10e3/uL H 4.8-10.8 10/16/2017 7:2017 8:04am Red Blood Count 3.97 x10e6/uL L 4.3-5.7 10/16/2017 7:10/16/2017 8: 04am Hemoglobin 11.5 g/dL L 14.0-18.0 10/16/2017 7:10/16/2017 8:04am Hematocrit 35.7 % L 38.2-49.6 10/16/2017 7:10/16/2017 8:04am Mean Corpuscular Volume 89.9 fL 81-99 10/16/2017 7:10/16/2017 8: 04am Mean Corpuscular Hemoglobin 29.0 pg 28-32 10/16/2017 7:10/16/2017 8:04am Mean Corpuscular Hemoglobin Concent 32.2 g/dL 31-35 10/16/2017 7:10/16/2017 8:04am Red Cell Distribution Width 14.6 % H 11.7-14.4 10/16/2017 7:2017 8:04am Platelet Count 281 x10e3/uL 140-360 10/16/2017 7:10/16/2017 8: 04am Neutrophils (%) (Auto) 67.5 % 38.7-80.0 10/16/2017 7:10/16/2017 8: 04am Lymphocytes (%) (Auto) 11.5 % L 18.0-39.1 10/16/2017 7:10/16/2017 8 :04am Monocytes (%) (Auto) 14.5 % H 4.4-11.3 10/16/2017 7:10/16/2017 8: 04am Eosinophils (%) (Auto) 5.6 % 0.0-6.0 10/16/2017 7:10/16/2017 8: 04am Basophils (%) (Auto) 0.5 % 0.0-1.0 10/16/2017 7:10/16/2017 8:04am IM GRANULOCYTES % 0.4 % 0.0-1.0 10/16/2017 7:10/16/2017 8:04am Neutrophils # (Auto) 8.8 H 2.1-6.9 10/16/2017 7:10/16/2017 8: 04am Lymphocytes # (Auto) 1.5 1.0-3.2 10/16/2017 7:10/16/2017 8:04am Monocytes # (Auto) 1.9 H 0.2-0.8 10/16/2017 7:10/16/2017 8:04am Eosinophils # (Auto) 0.7 H 0.0-0.4 10/16/2017 7:10/16/2017 8: 04am Basophils # (Auto) 0.1 0.0-0.1 10/16/2017 7:10/16/2017 8:04am Absolute Immature Granulocyte (auto 0.05 x10e3/uL 0-0.1 10/16/2017 7: 10/16/2017 8:04am Differential Total Cells Counted 100 10/16/2017 7:10/16/2017 8 :46am Neutrophils % (Manual) 75 % H 40-74 10/16/2017 7:10/16/2017 8:46am Lymphocytes % (Manual) 10 % L 19-48 10/16/2017 7:10/16/2017 8:46am Monocytes % (Manual) 11 % H 3.4-9.0 10/16/2017 7:10/16/2017 8:46am Eosinophils % (Manual) 4 % 0-7 10/16/2017 7:10/16/2017 8:46am Reactive Lymphocytes 4 10/14/2017 7:35am 10/14/2017 10:32am Platelet Estimate ADEQUATE 10/16/2017 7:10/16/2017 8:46am Platelet Morphology Comment NORMAL 10/16/2017 7:10/16/2017 8: 46am Hypochromasia SLIGHT 10/11/2017 6:15am 10/11/2017 7:49am Anisocytosis SLIGHT 10/16/2017 7:11am 10/16/2017 8:46am Macrocytosis SLIGHT 10/16/2017 7:11am 10/16/2017 8:46am Red Cell Morphology Comment NORMAL 10/16/2017 7:11am 10/16/2017 8: 46am Prothrombin Time 13.1 seconds 11.9-14.5 10/10/2017 6:50pm 10/10/2017 7: 16pm Prothromb Time International Ratio 1.07 10/10/2017 6:50pm 2017 7:16pm Oral Anticoagulant Therapy INR Values: 1. Low Intensity Therapy 1.5 - 2.0 2. Moderate Intensity Therapy 2.0 - 3.0 3. High Intensity Therapy(1) 2.5 - 3.5 4. High Intensity Therapy(2) 3.0 - 4.0 5. Panic Value INR > 5.0 Activated Partial Thromboplast Time 38.8 seconds H 23.8-35.5 10/10/2017 6 :50pm 10/10/2017 7:16pm Urine Color RED H YELLOW 10/10/2017 9:00pm 10/10/2017 9:13pm Urine Clarity HAZY CLEAR 10/10/2017 9:00pm 10/10/2017 9:13pm Urine Specific [place] 1.020 1.010-1.025 10/10/2017 9:00pm 2017 9:13pm Urine pH 6.5 5 - 7 10/10/2017 9:00pm 10/10/2017 9:13pm Urine Leukocyte Esterase NEGATIVE NEGATIVE 10/10/2017 9:00pm 2017 9:13pm Urine Nitrite NEGATIVE NEGATIVE 10/10/2017 9:00pm 10/10/2017 9:13pm Urine Protein 2+ H NEGATIVE 10/10/2017 9:00pm 10/10/2017 9:13pm Urine Glucose (UA) NEGATIVE NEGATIVE 10/10/2017 9:00pm 10/10/2017 9: 13pm Urine Ketones NEGATIVE NEGATIVE 10/10/2017 9:00pm 10/10/2017 9:13pm Urine Urobilinogen 0.2 mg/dL 0.2 - 1 10/10/2017 9:00pm 10/10/2017 9: 13pm Urine Bilirubin NEGATIVE NEGATIVE 10/10/2017 9:00pm 10/10/2017 9: 13pm Urine Blood 4+ H NEGATIVE 10/10/2017 9:00pm 10/10/2017 9:13pm Urine WBC NONE /HPF 0-5 10/10/2017 9:00pm 10/10/2017 9:26pm Urine RBC >50 /HPF H 0-5 10/10/2017 9:00pm 10/10/2017 9:26pm Urine Bacteria MODERATE /HPF H NONE 10/10/2017 9:00pm 10/10/2017 9:26pm Urine Epithelial Cells NONE /LPF NONE 10/10/2017 9:00pm 10/10/2017 9: 26pm Sodium Level 137 mmol/L 136-145 10/16/2017 7:11a10/16/2017 8:21am Potassium Level 3.9 mmol/L 3.5-5.1 10/16/2017 7:11a10/16/2017 8:21am Chloride Level 104 mmol/L 98-107 10/16/2017 7:11a10/16/2017 8:21am Carbon Dioxide Level 26 mmol/L 22-29 10/16/2017 7:10/16/2017 8: 21am Anion Gap 10.9 mmol/L 8-16 10/16/2017 7:10/16/2017 8:21am Blood Urea Nitrogen 16 mg/dL 7-10/16/2017 7:11a10/16/2017 8:21am Creatinine 0.96 mg/dL 0.72-1.25 10/16/2017 7:11a10/16/2017 8:21am BUN/Creatinine Ratio 17 6-25 10/16/2017 7:10/16/2017 8:21am Estimat Glomerular Filtration Rate > 60 ML/MIN 60- 10/16/2017 7: 8:21am Ranges were taken from the National Kidney Disease Education Program and the National [employer] literature. Reference ranges: 60 or greater: Normal 16-59 (for 3 consecutive months): Chronic kidney disease 15 or less: Kidney failure Glucose Level 99 mg/dL 74-118 10/16/2017 7:11a10/16/2017 8:21am Calcium Level 8.9 mg/dL 8.4-10.2 10/16/2017 7:11am 10/16/2017 8:21am Bedside Glucose 96 mg/dL 70-120 10/16/2017 11:10am 10/16/2017 12:24pm Meter ID: [id number] Total Bilirubin 0.5 mg/dL 0.2-1.2 10/15/2017 7:02am 10/15/2017 8:00am Aspartate Amino Transf (AST/SGOT) 13 IU/L 5-34 10/15/2017 7:02am 2017 8:00am Alanine Aminotransferase (ALT/SGPT) 11 IU/L 0-55 10/15/2017 7:02am 8:00am Total Protein 6.3 g/dL L 6.5-8.1 10/15/2017 7:02am 10/15/2017 8:00am Albumin 2.6 g/dL L 3.5-5.0 10/15/2017 7:02am 10/15/2017 8:00am Globulin 3.7 g/dL H 2.3-3.5 10/15/2017 7:02am 10/15/2017 8:00am Albumin/Globulin Ratio 0.7 L 0.8-2.0 10/15/2017 7:02am 10/15/2017 8: 00am Alkaline Phosphatase 98 IU/L 40-150 10/15/2017 7:02am 10/15/2017 8: 00am B-Type Natriuretic Peptide 48.5 pg/mL 0-100 10/10/2017 6:50pm 2017 7:30pm Creatine Kinase 35 IU/L 30-200 10/11/2017 6:15am 10/11/2017 7:03am Creatine Kinase MB 0.90 ng/mL 0-5.0 10/11/2017 6:15am 10/11/2017 6: 55am Troponin I 0.011 ng/mL 0-0.300 10/11/2017 6:15am 10/11/2017 6:55am Procedures Procedure Status Date Provider(s) EXCISION OF BLADDER, ENDO Completed 07/05/17 GARY BOONE MD PLAIN RADIOGRAPHY OF BLADDER & URETHRA USING L OSM CONTRAST Completed GARY BOONE MD Transurethral resection of bladder tumor (TURBT) with cystoscopy Completed GARY BOONE MD Cystoscopy with retrograde pyelography Completed 10/13/[address] of abdomen and pelvis without contrast Active 05/19/[address] of abdomen and pelvis without contrast Active 07/02/17 LOUISE GALEANO MD Computed tomography of abdomen and pelvis without then with contrast Active 07/02/17 JONH CHAVEZ MD X-ray of chest, single view Active 10/10/17 HAYDEE LIMA MD Computed tomography of chest with contrast Active 10/11/17 CRAIG GRAY MD Encounters Encounter Location Arrival/Admit Date Discharge/Depart Date Attending Provider Discharged Inpatient [facility] 10/12/17 8:33am 10/16/17 6:09pm CLEMENT OCONNOR MD Discharged Inpatient [facility] Patients [facility] 07/01/17 3:24pm 07/07/17 9:55pm CLEMENT OCONNOR MD [facility] 05/19/17 6:50pm 10:37pm JIM GUPTA MD
== END 2018-02-28 20:35 | DRG 871 ==
LOC: ER 22:44 → ERHOLD 02-21 03:44 → MED/SURG2 02-21 05:37
PROC: 0T788DZ Dilation of Bilateral Ureters with Intraluminal Device, Via Natural or Artificial Opening Endoscopic (ICD-10-PCS; principal; 2018-02-23 16:30)
DX: A41.81 Sepsis due to Enterococcus (principal); S72.111A Displaced fracture of greater trochanter of right femur, initial encounter for closed fracture; N17.0 Acute kidney failure with tubular necrosis; C78.7 Secondary malignant neoplasm of liver and intrahepatic bile duct; N30.01 Acute cystitis with hematuria; M97.01XA Periprosthetic fracture around internal prosthetic right hip joint, initial encounter; N17.9 Acute kidney failure, unspecified; N13.6 Pyonephrosis; I50.42 Chronic combined systolic (congestive) and diastolic (congestive) heart failure; E46 Unspecified protein-calorie malnutrition; F03.91 Unspecified dementia, unspecified severity, with behavioral disturbance; R65.20 Severe sepsis without septic shock; I11.0 Hypertensive heart disease with heart failure; W01.0XXA Fall on same level from slipping, tripping and stumbling without subsequent striking against object, initial encounter; Y93.01 Activity, walking, marching and hiking; Y92.019 Unspecified place in single-family (private) house as the place of occurrence of the external cause; I48.91 Unspecified atrial fibrillation; I25.2 Old myocardial infarction; I25.10 Atherosclerotic heart disease of native coronary artery without angina pectoris; Z95.1 Presence of aortocoronary bypass graft; Z95.810 Presence of automatic (implantable) cardiac defibrillator; Z96.641 Presence of right artificial hip joint; Z85.46 Personal history of malignant neoplasm of prostate; E03.9 Hypothyroidism, unspecified; Z82.49 Family history of ischemic heart disease and other diseases of the circulatory system; C67.9 Malignant neoplasm of bladder, unspecified; J20.9 Acute bronchitis, unspecified; Z87.891 Personal history of nicotine dependence; D63.8 Anemia in other chronic diseases classified elsewhere; G62.9 Polyneuropathy, unspecified
CPT/HCPCS: 36415; 51700; 70450; 71045; 72125; 74176; 74420; 80048; 80053; 81001; 81015; 82550; 82553; 82570; 83735; 83880; 84156; 84300; 84484; 85025; 85610; 85730; 87040; 87071; 87086; 87186; 87205; 88112; 88305; 93005; 96360; 96376; 97139; 99285; C2617; J0290; J0360; J0456; J0696; J1170; J1200; J2001; J2020; J2270; J2405; J3370; J7030; J7050